=== PATIENT | female | born 1965 | race Caucasian/White ===

== ENCOUNTER → 2018-03-29 | Outpatient (CLI) | payer MEDICAID ==
--- NOTE | 2018-03-31 13:16 | MM ---
Reason for exam: screening (asymptomatic). Last mammogram was performed 5 years and 3 months ago. Physical Findings: A clinical breast exam by your physician is recommended on an annual basis and results should be correlated with mammographic findings. MG Screening Mammo w CAD Bilateral CC and MLO view(s) were taken. Prior study comparison: December 25, 2012, bilateral digital screening mammo w/CAD. The breast tissue is heterogeneously dense. This may lower the sensitivity of mammography. No suspicious abnormality. Left focal asymmetry upper outer quadrant is similar to the exam of 2013. No significant changes when compared with prior studies. ASSESSMENT: Benign, BI-RAD 2 RECOMMENDATION: Routine screening mammogram of both breasts in 1 year.
== END | disposition home or self-care (01) ==
LOC: RADMAMWWP 11:22
PROVIDERS: ATTEND Family Medicine
DX: Z12.31 Encounter for screening mammogram for malignant neoplasm of breast (principal)
CPT/HCPCS: 77067

== ENCOUNTER → 2019-03-06 | Outpatient (CLI) | payer MEDICAID ==
[2019-03-06 08:54] LABS: HCT 43.7 % (34.0-46.0); HGB 14.4 gm/dL (11.4-16.0); MCH 31.2 pg (25.0-35.0); MCHC 32.9 g/dL (31.0-37.0); MCV 94.9 fL (80.0-100.0); Mean Platelet Volume 7.2; Platelet Count 250 k/uL (150-450); RDW 13.8 % (11.5-15.5); WBC 8.6 k/uL (3.8-10.6)
[2019-03-06 09:10] LABS: Appearance,Urine Cloudy (Clear); Bacteria,Urine Rare /hpf; Bilirubin,Urine Negative (Negative); Blood,Urine Negative (Negative); Color,Urine Yellow; Glucose,Urine (UA) Negative (Negative); Ketones,Urine Negative (Negative); Leukocyte Esterase,Urine Negative (Negative); Mucus,Urine Occasional /hpf; Nitrite,Urine Negative (Negative); PH, Urine 5.5 (5.0-8.0); Protein,Urine Trace (Negative); RBC,Urine 1 /hpf (0-5); Specific Gravity,Urine 1.024 (1.001-1.035); Squamous Epithelial Cell,Urine 15 /hpf (0-4); Urobilinogen,Urine <2.0 mg/dL (<2.0); WBC,Urine 3 /hpf (0-5)
[2019-03-06 17:22] LABS: Albumin 4.2 g/dL (3.80-4.90); Albumin/Globulin Ratio 1.91 (1.60-3.17); Anion Gap 6.9 mmol/L (4.00-12.00); Calcium 9.2 mg/dL (8.7-10.3); Carbon Dioxide 27.1 mmol/L (21.6-31.8); Globulin 2.2 g/dL (1.6-3.3); LDL Cholesterol,Calculated 124.4 mg/dL (0.0-131.0); Potassium 3.9 mmol/L (3.5-5.5); Total Bilirubin 0.8 mg/dL (0.3-1.2); Total Protein 6.4 g/dL (6.2-8.2); VLDL Calculation 40.6 mg/dL (5.00-40.00)
[2019-03-06 17:28] LABS: T4, Free (Free Thyroxine) 1.3 ng/dL (0.80-1.80)
== END ==
LOC: LABWHC1 08:15
PROVIDERS: ATTEND Family Medicine
DX: Z00.00 Encounter for general adult medical examination without abnormal findings (principal); E03.9 Hypothyroidism, unspecified
CPT/HCPCS: 36415; 80053; 80061; 81001; 84439; 84443; 84481; 85027

== ENCOUNTER → 2020-06-02 | Outpatient (CLI) | payer MEDICAID ==
[2020-06-02 09:46] LABS: HCT 48.8 % (34.0-46.0); HGB 16.2 gm/dL (11.4-16.0); MCH 32.9 pg (25.0-35.0); MCHC 33.3 g/dL (31.0-37.0); MCV 98.8 fL (80.0-100.0); Mean Platelet Volume 7.4; Platelet Count 267 k/uL (150-450); RBC 4.94 m/uL (3.80-5.40); RDW 12.4 % (11.5-15.5); WBC 9.2 k/uL (3.8-10.6)
[2020-06-02 17:19] LABS: African American GFR (CKD) 113.8 (60.0-200.0); Albumin 4.4 g/dL (3.80-4.90); Albumin/Globulin Ratio 1.91 (1.60-3.17); Anion Gap 12.3 mmol/L (4.00-12.00); BUN/Creat Ratio 22.86 Ratio (12.00-20.00); Calcium 9.7 mg/dL (8.7-10.3); Carbon Dioxide 27.7 mmol/L (21.6-31.8); Chol/HDL Ratio 4.67; Globulin 2.3 g/dL (1.6-3.3); LDL Cholesterol,Calculated 122.8 mg/dL (0.0-131.0); Non-African American GFR(CKD) 98.2 (60.0-200.0); Potassium 3.8 mmol/L (3.5-5.5); Total Bilirubin 0.8 mg/dL (0.3-1.2); Total Protein 6.7 g/dL (6.2-8.2); VLDL Calculation 31.2 mg/dL (5.00-40.00)
== END | disposition home or self-care (01) ==
LOC: LABWHC1 08:05
PROVIDERS: ATTEND Family Medicine
DX: Z00.01 Encounter for general adult medical examination with abnormal findings (principal)
CPT/HCPCS: 36415; 80053; 80061; 85027

== ENCOUNTER → 2020-06-15 | Outpatient (CLI) | payer MEDICAID ==
[2020-06-15 19:05] LABS: T4, Free (Free Thyroxine) 1.3 ng/dL (0.80-1.80)
== END | disposition home or self-care (01) ==
LOC: LABWHC1 13:51
PROVIDERS: ATTEND Family Medicine
DX: E03.9 Hypothyroidism, unspecified (principal)
CPT/HCPCS: 36415; 84439; 84443; 84481

== ENCOUNTER → 2020-07-20 | Outpatient (CLI) | payer MEDICAID ==
--- NOTE | 2020-07-21 09:11 | MM ---
Reason for exam: screening (asymptomatic). Last mammogram was performed 2 years and 4 months ago. Physical Findings: A clinical breast exam by your physician is recommended on an annual basis and results should be correlated with mammographic findings. MG Screening Mammo w CAD Bilateral CC and MLO view(s) were taken. Prior study comparison: March 29, 2018, bilateral MG screening mammo w CAD. December 25, 2012, bilateral digital screening mammo w/CAD. The breast tissue is heterogeneously dense. This may lower the sensitivity of mammography. There are benign appearing round calcifications bilaterally. There is chronic nodularity bilaterally. There is no discrete abnormality. ASSESSMENT: Benign, BI-RAD 2 RECOMMENDATION: Routine screening mammogram of both breasts in 1 year.
== END | disposition home or self-care (01) ==
LOC: RADMAMWWP 08:04
PROVIDERS: ATTEND Family Medicine
DX: Z12.31 Encounter for screening mammogram for malignant neoplasm of breast (principal)
CPT/HCPCS: 77067

== ENCOUNTER → 2021-06-19 | Outpatient (CLI) | payer MEDICAID ==
[2021-06-19 11:35] LABS: HCT 43.7 % (37.2-46.3); HGB 14.5 g/dL (12.0-15.0); MCH 32.7 pg (27.0-32.0); MCHC 33.2 g/dL (32.0-37.0); MCV 98.4 fL (80.0-97.0); Mean Platelet Volume 10.3 fL (9.5-12.2); Platelet Count 203 X 10*3/uL (140-440); RBC 4.44 X 10*6/uL (4.10-5.20); RDW 11.6 % (11.5-14.5); WBC 6.25 X 10*3/uL (4.50-10.00)
[2021-06-19 11:59] LABS: T4, Free (Free Thyroxine) 1.5 ng/dL (0.80-1.80)
[2021-06-19 12:00] LABS: Albumin 4.1 g/dL (3.80-4.90); Albumin/Globulin Ratio 1.64 (1.60-3.17); Anion Gap 9.4 mmol/L (4.00-12.00); BUN/Creat Ratio 21.43 Ratio (12.00-20.00); Calcium 9.5 mg/dL (8.7-10.3); Carbon Dioxide 28.6 mmol/L (21.6-31.8); Chol/HDL Ratio 3.98; Globulin 2.5 g/dL (1.6-3.3); LDL Cholesterol,Calculated 117.2 mg/dL (0.0-131.0); Non-African American GFR(CKD) 97.5 (60.0-200.0); Potassium 3.8 mmol/L (3.5-5.5); Total Bilirubin 1.2 mg/dL (0.2-1.2); Total Protein 6.6 g/dL (6.2-8.2); VLDL Calculation 28.8 mg/dL (5.00-40.00)
== END | disposition home or self-care (01) ==
LOC: LABWHC1 07:56
PROVIDERS: ATTEND Family Medicine
DX: Z00.01 Encounter for general adult medical examination with abnormal findings (principal); E03.9 Hypothyroidism, unspecified
CPT/HCPCS: 36415; 80053; 80061; 84439; 84443; 84481; 85027

== ENCOUNTER → 2021-08-22 | Outpatient (CLI) | payer MEDICAID ==
--- NOTE | 2021-08-24 11:18 | MM ---
Reason for exam: screening (asymptomatic). Last mammogram was performed 1 year and 1 month ago. Physical Findings: A clinical breast exam by your physician is recommended on an annual basis and results should be correlated with mammographic findings. MG Screening Mammo w CAD Bilateral CC and MLO view(s) were taken. Prior study comparison: July 20, 2020, bilateral MG screening mammo w CAD. March 29, 2018, bilateral MG screening mammo w CAD. The breast tissue is heterogeneously dense. This may lower the sensitivity of mammography. Asymmetries greater in the left breast. No significant changes when compared with prior studies. ASSESSMENT: Benign, BI-RAD 2 RECOMMENDATION: Routine screening mammogram of both breasts in 1 year.
== END | disposition home or self-care (01) ==
LOC: RADMAMWWP 13:54
PROVIDERS: ATTEND Family Medicine
DX: Z12.31 Encounter for screening mammogram for malignant neoplasm of breast (principal)
CPT/HCPCS: 77067

== ENCOUNTER → 2022-07-06 | Outpatient (CLI) | payer MEDICAID ==
[2022-07-06 14:41] LABS: HCT 45.4 % (37.2-46.3); HGB 14.9 g/dL (12.0-15.0); MCH 32.2 pg (27.0-32.0); MCHC 32.8 g/dL (32.0-37.0); MCV 98.1 fL (80.0-97.0); Mean Platelet Volume 11.2 fL (9.5-12.2); NRBC Per 100 WBC 0 /100 WBCS (0.0-0.0); Platelet Count 177 X 10*3/uL (140-440); RBC 4.63 X 10*6/uL (4.10-5.20); RDW 11.9 % (11.5-14.5); WBC 7.16 X 10*3/uL (4.50-10.00)
[2022-07-06 15:01] LABS: Chol/HDL Ratio 4.77 Ratio; LDL Cholesterol,Calculated 165.4 mg/dL (0.0-131.0)
[2022-07-06 15:02] LABS: ALT 22 U/L (8-44); AST 25 U/L (13-35); African American GFR (CKD) 115.4 (60.0-200.0); Albumin 4.2 g/dL (3.8-4.9); Albumin/Globulin Ratio 1.54 (1.60-3.17); Alkaline Phosphatase 38 U/L (41-126); BUN/Creat Ratio 22.08 Ratio (12.00-20.00); Blood Urea Nitrogen 14.2 mg/dL (9.0-27.0); Calcium 9.9 mg/dL (8.7-10.3); Carbon Dioxide 28.9 mmol/L (20.0-27.5); Chloride 99 mmol/L (96-109); Globulin 2.7 g/dL (1.6-3.3); Glucose 114 mg/dL (70-110); Non-African American GFR(CKD) 99.6 (60.0-200.0); Potassium 3.9 mmol/L (3.5-5.5); Sodium 139 mmol/L (135-145)
== END | disposition home or self-care (01) ==
LOC: LABWHC1 09:10
PROVIDERS: ATTEND Family Medicine
DX: Z00.01 Encounter for general adult medical examination with abnormal findings (principal); E03.9 Hypothyroidism, unspecified
CPT/HCPCS: 36415; 80053; 80061; 84443; 84481; 85027

== ENCOUNTER → 2022-09-04 | Outpatient (CLI) | payer MEDICAID ==
--- NOTE | 2022-09-05 09:26 | MM ---
Reason for Exam: Screening (asymptomatic). Last mammogram was performed 1 year(s) and 1 month(s) ago. Patient History: Menarche at age 13. First Full-Term at age 26. Postmenopausal. Risk Values: Yasmin 5 year model risk: 1.4%. NCI Lifetime model risk: 8.9%. Prior Study Comparison: 03/29/2018 Bilateral Screening Mammogram, [facility]. 07/20/2020 Bilateral Screening Mammogram, [facility]. 08/22/2021 Bilateral Screening Mammogram, [facility]. Tissue Density: The breast tissue is heterogeneously dense. This may lower the sensitivity of mammography. Findings: Analyzed By CAD. There is no suspicious group of microcalcifications or new suspicious mass in either breast. Areas of chronic nodularity suggestive of benign lymph node. Stable. Benign calcifications. Overall Assessment: Benign, BI-RAD 2 Management: Screening Mammogram of both breasts in 1 year. A clinical breast exam by your physician is recommended on an annual basis and results should be correlated with mammographic findings. Electronically signed and approved by: Valentín Martinez M.D. Radiologis
== END | disposition home or self-care (01) ==
LOC: RADMAMWWP 09:13
PROVIDERS: ATTEND Family Medicine
DX: Z12.31 Encounter for screening mammogram for malignant neoplasm of breast (principal)
CPT/HCPCS: 77067

== ENCOUNTER → 2023-07-22 | Outpatient (CLI) | payer MEDICAID ==
[2023-07-22 15:43] LABS: HCT 46.2 % (37.2-46.3); HGB 14.7 d/dL (12.0-15.0); MCH 31.7 pg (27.0-32.0); MCHC 31.8 d/dL (32.0-37.0); MCV 99.8 FL (80.0-97.0); Mean Platelet Volume 9.9 FL (9.5-12.2); NRBC Per 100 WBC 0 X 10*3/uL (0.00-0.01); Platelet Count 196 X 10*3/uL (140-440); RBC 4.63 X 10*6/uL (4.10-5.20); WBC 6.79 X 10*3/uL (4.50-10.00)
[2023-07-22 15:58] LABS: Chol/HDL Ratio 4.68 Ratio; LDL Cholesterol,Calculated 158.1 mg/dL (0.0-131.0); T4, Free (Free Thyroxine) 1.48 ng/dL (0.80-1.80)
== END | disposition home or self-care (01) ==
LOC: LABWHC1 09:48
PROVIDERS: ATTEND Family Medicine
DX: Z00.01 Encounter for general adult medical examination with abnormal findings (principal); E03.9 Hypothyroidism, unspecified
CPT/HCPCS: 36415; 80061; 84439; 84443; 84481; 85027

== ENCOUNTER → 2024-03-18 | Outpatient (CLI) | payer MEDICAID ==
--- NOTE | 2024-03-20 11:28 | MM ---
Reason for Exam: Screening (asymptomatic). Last mammogram was performed 1 year(s) and 6 month(s) ago. Patient History: Menarche at age 13. First Full-Term at age 26. Postmenopausal. Risk Values: Yasmin 5 year model risk: 1.5%. NCI Lifetime model risk: 8.5%. Prior Study Comparison: 07/20/2020 Bilateral Screening Mammogram, [facility]. 08/22/2021 Bilateral Screening Mammogram, [facility]. 09/04/2022 Bilateral MG screening mammo w CAD, [facility]. Tissue Density: The breasts are heterogeneously dense, which may obscure small masses. Findings: Analyzed By CAD. There is no suspicious group of microcalcifications or new suspicious mass in either breast. Overall Assessment: Benign, BI-RAD 2 Management: Screening Mammogram of both breasts in 1 year. . Patient should continue monthly self-breast exams. A clinical breast exam by your physician is recommended on an annual basis. This exam should not preclude additional follow-up of suspicious palpable abnormalities. Note on Yasmin scores and lifetime risk: 1. A Yasmin score greater than 3% is considered moderate risk. If this is the case, consider specialist referral to assess eligibility for a risk reducing agent. 2. If overall lifetime risk for the development of breast cancer is 20% or higher, the patient may qualify for future screening with alternating mammogram and breast MRI. Electronically signed and approved by: Clint Cabrales M.D. Radiologis
== END | disposition home or self-care (01) ==
LOC: RADMAMWWP 10:45
PROVIDERS: ATTEND Family Medicine
DX: Z12.31 Encounter for screening mammogram for malignant neoplasm of breast (principal); Z78.0 Asymptomatic menopausal state
CPT/HCPCS: 77067

== ENCOUNTER → 2024-08-20 | Outpatient (CLI) | payer MEDICAID ==
[2024-08-20 15:50] LABS: Blood Urea Nitrogen 11.4 mg/dL (9.0-27.0); Chloride 99 mmol/L (96-109); Chol/HDL Ratio 4.64 Ratio; Glucose 136 mg/dL (70-110); LDL Cholesterol,Calculated 136.7 mg/dL (0.0-131.0); Potassium 4.1 mmol/L (3.5-5.5); Sodium 141 mmol/L (135-145)
[2024-08-20 15:51] LABS: ALT 29 U/L (8-44); AST 22 U/L (13-35); Albumin/Globulin Ratio 1.82 Ratio (1.60-3.17); Alkaline Phosphatase 45 U/L (41-126); Calcium 9.6 mg/dL (8.7-10.3); Carbon Dioxide 30.2 mmol/L (21.6-31.8); Globulin 2.2 g/dL (1.6-3.3); T4, Free (Free Thyroxine) 1.16 ng/dL (0.80-1.80); Total Bilirubin 0.7 mg/dL (0.3-1.2); Total Protein 6.2 g/dL (6.2-8.2)
[2024-08-20 16:39] LABS: HCT 46.7 % (37.2-46.3); HGB 15.4 g/dL (12.0-15.0); MCH 33.2 pg (27.0-32.0); MCV 100.6 FL (80.0-97.0); Mean Platelet Volume 10.5 FL (9.5-12.2); NRBC Per 100 WBC 0 X 10*3/uL (0.00-0.01); Platelet Count 202 X 10*3/uL (140-440); RBC 4.64 X 10*6/uL (4.10-5.20); RDW 12.2 % (11.5-14.5); WBC 7.06 X 10*3/uL (4.50-10.00)
== END | disposition home or self-care (01) ==
LOC: LABWHC1 10:08
PROVIDERS: ATTEND Family Medicine
DX: Z00.01 Encounter for general adult medical examination with abnormal findings (principal); E03.9 Hypothyroidism, unspecified; R73.03 Prediabetes
CPT/HCPCS: 36415; 80053; 80061; 83036; 84439; 84443; 84481; 85027

== ENCOUNTER 2024-11-12 10:55 | Inpatient (IN) | payer MEDICAID ==
--- NOTE | 2024-11-12 11:16 | ED ---
SOB HPI - General Chief Complaint: Shortness of Breath Stated Complaint: SOB Time Seen by Provider: 11/12/24 11:13 Source: patient, family (), RN notes reviewed Mode of arrival: ambulatory Limitations: no limitations - History of Present Illness Initial Comments: 59-year-old female with a past medical history significant of thyroid disorder and hypertension presenting to the ER for evaluation of shortness of breath. Patient was sent by PCP, Dr. Snowden, for evaluation of hypoxia. Patient states over the weekend she started to feel ill with a cough that is worse at night. She was seen by PCP today for evaluation of this. Patient was found to have oxygen saturations in the 80s. Patient was given breathing treatment in office without improvement. They also ambulated patient with no improvement of oxygen saturations. , at bedside, states she has been having progressive shortness of breath over the past 6 weeks. Patient states she has exertional dyspnea going up stairs, carrying her purse or doing anything extra besides wa lking. She denies home oxygen use, CPAP use, peripheral edema. Patient does states she sleeps on her back but last night slept in a recliner as she "did not want to bother her with coughing". She denies recent or current chest pain, fevers, chills, nausea, vomiting, abdominal pain, constipation/diarrhea or urinary complaints. Patient does report she takes hydrochlorothiazide for hypertension. She does report a distant history of smoking. No history of blood clots and no anticoagulation use. - Related Data Home Medications Medication Instructions Recorded Confirmed Levothyroxine Sodium [Synthroid] 100 mcg PO DAILY 11/12/24 11/12/24 Sertraline [Zoloft] 50 mg PO DAILY 11/12/24 11/12/24 hydroCHLOROthiazide [Hydrodiuril] 25 mg PO DAILY 11/12/24 11/12/24 hydroCHLOROthiazide [Hydrodiuril] 25 mg PO DAILY PRN 11/12/24 11/12/24 lisinopriL [Zestril] 20 mg PO DAILY 11/12/24 11/12/24 Allergies Allergy/AdvReac Type Severity Reaction Status Date / Time No Known Allergies Allergy Verified 11/12/24 13:09 Review of Systems ROS Statement: Those systems with pertinent positive or pertinent negative responses have been documented in the HPI. ROS Other: All systems not noted in ROS Statement are negative. Past Medical History Past Medical History: Hypertension, Thyroid Disorder Past Surgical History: Cholecystectomy Smoking Status: Never smoker General Exam Limitations: no limitations General appearance: alert, in no apparent distress ENT exam: Present: normal exam, mucous membranes moist Respiratory exam: Present: decreased breath sounds (Right), other (Conversational dyspnea oxygen saturation is dropping to 84% on room air) Cardiovascular Exam: Present: regular rate, normal rhythm, normal heart sounds. Absent: systolic murmur, diastolic murmur, rubs, gallop, clicks GI/Abdominal exam: Present: soft, normal bowel sounds. Absent: distended, tenderness, guarding, rebound, rigid Extremities exam: Present: normal inspection, full ROM, normal capillary refill, other (No pitting edema). Absent: tenderness, pedal edema, joint swelling, calf tenderness Neurological exam: Present: alert, oriented X3, CN II-XII intact Skin exam: Present: warm, dry, intact, normal color. Absent: rash Course Vital Signs 11/12/24 11/12/24 11/12/24 10:57 12:14 12:17 Temperature 97.6 F Pulse Rate 92 77 Respiratory 20 22 Rate Blood Pressure 179/79 172/81 O2 Sat by Pulse 94 L 86 L 95 Oximetry - Reevaluation(s) Reevaluation #1: 11/12/24 13:34 Case discussed with Sound physician, Dr. Modi, for admission. Medical Decision Making - Medical Decision Making Was pt. sent in by a medical professional or institution (, PA, RIG OPERATOR, urgent care, hospital, or half-way...) When possible be specific @ -Patient sent by PCP for evaluation of hypoxia Did you speak to anyone other than the patient for history (EMS, parent, family, police, friend...)? What history was obtained from this source @ -, at bedside, aiding in HPI and past medical history. Did you review nursing and triage notes (agree or disagree)? Why? @ -I reviewed and agree with nursing and triage notes Were old charts reviewed (outside hosp., previous admission, EMS record, old EKG, old radiological studies, urgent care reports/EKG's, half-way records)? Report findings @ -No old charts were reviewed Differential Diagnosis (chest pain, altered mental status, abdominal pain women, abdominal pain men, vaginal bleeding, weakness, fever, dyspnea, syncope, head ache, dizziness, GI bleed, back pain, seizure, CVA, palpatations, mental health, musculoskeletal)? @ -Differential Dyspnea:Coronary syndrome, arrhythmia, tamponade, asthma, COPD, pulmonary embolism, pneumonia, pneumothorax, pulmonary effusion, anaphylaxis, diabetic ketoacidosis, flailed chest, pulmonary contusion, diaphragmatic rupture, anemia, neuromuscular, this is not meant to be an all-inclusive list. EKG interpreted by me (3pts min.). @ -As above X-rays interpreted by me (1pt min.). @ -CXR interpreted me showing prominent pulmonary vasculature. No focal consolidations. CT interpreted by me (1pt min.). @ -CTA chest showing no acute evidence of pulmonary embolism. There is patchy pulmonary opacities suggestive of atypical pneumonia. U/S interpreted by me (1pt. min.). @ -None done What testing was considered but not performed or refused? (CT, X-rays, U/S, labs)? Why? @ -None What meds were considered but not given or refused? Why? @ -None Did you discuss the management of the patient with other professionals (professionals i.e. , PA, RIG OPERATOR, lab, RT, psych nurse, group social worker, sand tester, teacher, commissary officer, correctional case records supervisor)? Give summary @ -Case discussed with sound physician, Dr. Alves for admission. Was smoking cessation discussed for >3mins.? @ -No Was critical care preformed (if so, how long)? @ -No Were there social determinants of health that impacted care today? How? (Homelessness, low income, unemployed, alcoholism, drug addiction, transportation, low edu. Level, literacy, decrease access to med. care, fpc, rehab)? @ -No Was there de-escalation of care discussed even if they declined (Discuss DNR or withdrawal of care, Hospice)? DNR status @ -No What co-morbidities impacted this encounter? (DM, HTN, Smoking, COPD, CAD, Cancer, CVA, ARF, Chemo, Hep., AIDS, mental health diagnosis, sleep apnea, morbid obesity)? @ -Hypertension, thyroid disorder, obese Was patient admitted / discharged? Hospital course, mention meds given and route, prescriptions, significant lab abnormalities, going to OR and other pertinent info. @ -Admitted. 59-year-old female sent in by PCP for evaluation of dyspnea.Upon examination, patient resting in exam room with mild signs of acute respiratory distress. Patient having conversational dyspnea and having oxygen saturations between 84 and 86% on room air. Patient does not typically wear oxygen at home. Patient was started on 4 L nasal cannula oxygen at that time with improvement of oxygen saturation to 95%. Laboratory studies obtained along with chest x- ray. WBC 8.8. Lactic 1.1. Troponin undetectable. BNP 102. D-dimer elevated at 0.65 for which CTA chest was obtained and showing no evidence of acute pulmonary embolism. There is patchy pulmonary opacities suggestive of an atypical pneumonia. Patient remained stable in the ER on 3L NC oxygen. Given pneumonia and hypoxia admission was considered and discussed with Sound physician, Dr. Modi. Blood cultures obtained. Patient started on 2 g IV push Rocephin along with 500mg azithromycin. Patient also given 125 mg Solu-Medrol and maintenance fluid at 100 cc/h. ID on consult. Patient is agreeable for admission. Case discussed with the attending, Dr. Yu. Undiagnosed new problem with uncertain prognosis? @ -No Drug Therapy requiring intensive monitoring for toxicity (Heparin, Nitro, Insulin, Cardizem)? @ -No Were any procedures done? @ -No Diagnosis/symptom? @ -Pneumonia/hypoxia Acute, or Chronic, or Acute on Chronic? @ -Acute Uncomplicated (without systemic symptoms) or Complicated (systemic symptoms)? @ -Complicated Side effects of treatment? @ -No Exacerbation, Progression, or Severe Exacerbation? @ -No Poses a threat to life or bodily function? How? (Chest pain, USA, NV, pneumonia, PE, COPD, DKA, ARF, appy, cholecystitis, CVA, Diverticulitis, Homicidal, Suicidal, threat to staff... and all critical care pts) @ -Yes, pneumonia can lead to hypoxia and/or sepsis. - Lab Data Result diagrams: 11/12/24 11:28 11/12/24 11:28 Lab Results 11/12/24 11/12/24 11/12/24 Range/Units 11:28 11:28 11:28 WBC 8.8 (3.8-10.6) k/uL RBC 4.68 (3.80-5.40) m/uL Hgb 14.5 (11.4-16.0) gm/dL Hct 47.1 H (34.0-46.0) % MCV 100.4 H (80.0-100.0) fL MCH 30.8 (25.0-35.0) pg MCHC 30.7 L (31.0-37.0) g/dL RDW 13.4 (11.5-15.5) % Plt Count 263 (150-450) k/uL MPV 7.0 Neutrophils % 79 % Lymphocytes % 13 % Monocytes % 5 % Eosinophils % 2 % Basophils % 0 % Neutrophils # 7.0 (1.3-7.7) k/uL Lymphocytes # 1.1 (1.0-4.8) k/uL Monocytes # 0.4 (0-1.0) k/uL Eosinophils # 0.2 (0-0.7) k/uL Basophils # 0.0 (0-0.2) k/uL Hypochromasia Slight PT 11.5 (10.0-12.5) sec INR 1.0 (<1.2) APTT 23.3 (22.0-30.0) sec D-Dimer 0.65 H (<0.60) mg/L FEU Sodium 133 L (137-145) mmol/L Potassium 4.4 (3.5-5.1) mmol/L Chloride 100 (98-107) mmol/L Carbon Dioxide 31 H (22-30) mmol/L Anion Gap 2 mmol/L BUN 12 (7-17) mg/dL Creatinine 0.52 (0.52-1.04) mg/dL Est GFR (CKD-EPI)AfAm >90 (>60 ml/min/1.73 sqM) Est GFR (CKD-EPI)NonAf >90 (>60 ml/min/1.73 sqM) Glucose 137 H (74-99) mg/dL Plasma Lactic Acid Maverick (0.7-2.0) mmol/L Calcium 9.3 (8.4-10.2) mg/dL Total Bilirubin 1.1 (0.2-1.3) mg/dL AST 31 (14-36) U/L ALT 31 (4-34) U/L Alkaline Phosphatase 26 L (38-126) U/L Troponin I (0.000-0.034) ng/mL NT-Pro-B Natriuret Pep 102 pg/mL Total Protein 6.7 (6.3-8.2) g/dL Albumin 4.0 (3.5-5.0) g/dL Influenza Type A (PCR) (Not Detectd) Influenza Type B (PCR) (Not Detectd) RSV (PCR) (Not Detectd) SARS-CoV-2 (PCR) (Not Detectd) 11/12/24 11/12/24 11/12/24 Range/Units 11:28 11:28 11:28 WBC (3.8-10.6) k/uL RBC (3.80-5.40) m/uL Hgb (11.4-16.0) gm/dL Hct (34.0-46.0) % MCV (80.0-100.0) fL MCH (25.0-35.0) pg MCHC (31.0-37.0) g/dL RDW (11.5-15.5) % Plt Count (150-450) k/uL MPV Neutrophils % % Lymphocytes % % Monocytes % % Eosinophils % % Basophils % % Neutrophils # (1.3-7.7) k/uL Lymphocytes # (1.0-4.8) k/uL Monocytes # (0-1.0) k/uL Eosinophils # (0-0.7) k/uL Basophils # (0-0.2) k/uL Hypochromasia PT (10.0-12.5) sec INR (<1.2) APTT (22.0-30.0) sec D-Dimer (<0.60) mg/L FEU Sodium (137-145) mmol/L Potassium (3.5-5.1) mmol/L Chloride (98-107) mmol/L Carbon Dioxide (22-30) mmol/L Anion Gap mmol/L BUN (7-17) mg/dL Creatinine (0.52-1.04) mg/dL Est GFR (CKD-EPI)AfAm (>60 ml/min/1.73 sqM) Est GFR (CKD-EPI)NonAf (>60 ml/min/1.73 sqM) Glucose (74-99) mg/dL Plasma Lactic Acid Maverick 1.1 (0.7-2.0) mmol/L Calcium (8.4-10.2) mg/dL Total Bilirubin (0.2-1.3) mg/dL AST (14-36) U/L ALT (4-34) U/L Alkaline Phosphatase (38-126) U/L Troponin I <0.012 (0.000-0.034) ng/mL NT-Pro-B Natriuret Pep pg/mL Total Protein (6.3-8.2) g/dL Albumin (3.5-5.0) g/dL Influenza Type A (PCR) Not Detected (Not Detectd) Influenza Type B (PCR) Not Detected (Not Detectd) RSV (PCR) Not Detected (Not Detectd) SARS-CoV-2 (PCR) Not Detected (Not Detectd) - EKG Data -: EKG Interpreted by Me EKG Comments: EKG taken 11: 08 showing a sinus rhythm. No acute ST segment or T wave abnormalities. Ventricular rate 88, AL interval 163, QRS duration 80, QT/QTc 375/402. - Radiology Data Radiology results: report reviewed, image reviewed Disposition Clinical Impression: Pneumonia, Hypoxia Disposition: ADMITTED IP TO THIS HOSP Condition: Stable Time of Disposition: 13:36
[2024-11-12 11:41] LABS: Basophils % (A) 0 %; Eosinophils # (A) 0.2 k/uL (0-0.7); Eosinophils % (A) 2 %; HCT 47.1 % (34.0-46.0); HGB 14.5 gm/dL (11.4-16.0); Hypochromasia Slight; Lymphocytes # (A) 1.1 k/uL (1.0-4.8); Lymphocytes % (A) 13 %; MCH 30.8 pg (25.0-35.0); MCHC 30.7 g/dL (31.0-37.0); MCV 100.4 fL (80.0-100.0); Monocytes # (A) 0.4 k/uL (0-1.0); Monocytes % (A) 5 %; Neutrophils % (A) 79 %; Platelet Count 263 k/uL (150-450); RBC 4.68 m/uL (3.80-5.40); RDW 13.4 % (11.5-15.5); WBC 8.8 k/uL (3.8-10.6)
[2024-11-12 11:54] LABS: Partial Thromboplastin Time 23.3 sec (22.0-30.0); Prothrombin Time 11.5 sec (10.0-12.5)
--- NOTE | 2024-11-12 12:21 | XR ---
EXAMINATION TYPE: XR chest 2V DATE OF EXAM: 11/12/2024 11:49 AM COMPARISON: Chest radiographs from 11/12/2024 CLINICAL INDICATION: Female, 59 years old with history of difficulty breathing; [facility] TECHNIQUE: XR chest 2V Frontal and lateral views of the chest. FINDINGS: Lungs/Pleura: There is no evidence of pleural effusion, focal consolidation, or pneumothorax. Pulmonary vascularity: Pulmonary vascular congestion. Heart/mediastinum: Cardiomediastinal silhouette is enlarged and stable. Musculoskeletal: No acute osseous pathology. IMPRESSION: Cardiomegaly and mild pulmonary vascular congestion. Correlate with BNP for congestive heart failure. [facility], , 11/12/2024 12:19 PM
[2024-11-12 12:22] LABS: ALT 31 U/L (4-34); African American GFR (CKD) >90 (>60 ml/min/1.73 sqM); Anion Gap 2 mmol/L; Blood Urea Nitrogen 12 mg/dL (7-17); Calcium 9.3 mg/dL (8.4-10.2); Carbon Dioxide 31 mmol/L (22-30); Chloride 100 mmol/L (98-107); Glucose 137 mg/dL (74-99); Non-African American GFR(CKD) >90 (>60 ml/min/1.73 sqM); Sodium 133 mmol/L (137-145); Total Bilirubin 1.1 mg/dL (0.2-1.3); Total Protein 6.7 g/dL (6.3-8.2)
[2024-11-12 12:29] LABS: NT-Pro-B-Type Natriuretic Pept 102 pg/mL
[2024-11-12 12:32] LABS: AST 31 U/L (14-36); Alkaline Phosphatase 26 U/L (38-126); Potassium 4.4 mmol/L (3.5-5.1)
--- NOTE | 2024-11-12 13:13 | CT ---
EXAMINATION TYPE: CT chest angio for PE CT DLP: 1133.6 mGycm, Automated exposure control for dose reduction was used. DATE OF EXAM: 11/12/2024 1:02 PM COMPARISON: Chest radiograph from same day. CLINICAL INDICATION:Female, 59 years old with history of hypoxia elevated dimer; hypoxia elevated dim er TECHNIQUE/CONTRAST: CTA scan of the thorax is performed with IV Contrast, patient injected with 100ml mL of Isovue 370, p ulmonary embolism protocol. MIP images are created and reviewed. FINDINGS: Pulmonary Artery: There is no evidence for a filling defect within the pulmonary vasculature to sugge st acute pulmonary embolism. The pulmonary artery is of normal size. Lungs/Pleura: No pleural effusion or pneumothorax. Patchy airspace opacities throughout the lungs mor e subpleural location. Few scattered calcified granulomas. Airway: Large airways are patent. Heart: The heart is mildly enlarged for size.. No pericardial effusion Vasculature: Bovine aortic arch configuration. No evidence of aortic aneurysm. Mediastinum: Multiple prominent mediastinal and bilateral hilar lymph nodes with enlarged left hilar lymph node measuring up to 1.3 cm short axis. Few punctate calcified right hilar lymph nodes. Musculoskeletal: No acute osseous abnormalities Soft Tissues: Unremarkable. Lower neck: No significant findings. Upper Abdomen: Multiple calcified granulomas within the spleen. Gallbladder is surgically absent. Hyp oattenuating appearance of the liver. IMPRESSION: 1. No evidence of pulmonary embolism. 2. Patchy pulmonary opacities suggestive of an atypical pulmonary infection. 3. Reactive mediastinal/hilar lymphadenopathy likely secondary to #2. 4. Sequelae of prior granulomatous disease. 5. Cardiomegaly. 6. Hepatic steatosis. [facility], , 11/12/2024 1:10 PM
[2024-11-12] MEDS ORDERED: ONDANSETRON 4 MG/2 ML VIAL IVP PRN (13:35)
[2024-11-12] MEDS ORDERED: IBUPROFEN 400 MG TAB PO PRN (13:35)
[2024-11-12] MEDS ORDERED: ACETAMINOPHEN TAB 325 MG TAB PO PRN (13:35)
[2024-11-12] MEDS ORDERED: NALOXONE 0.4 MG/ML 1 ML VIAL IV PRN (13:35)
[2024-11-12] MEDS: methylPREDNISolone SOD SUCCI 125 MG/2 ML VIAL IV STA ×2 (14:16→14:56)
[2024-11-12] MEDS: AZITHROMYCIN 500 MG TAB PO STA (14:46)
[2024-11-12] MEDS: cefTRIAXone IN SWFI 1,000 MG/10 ML SYRINGE IVP STA (14:49)
[2024-11-12] MEDS: SODIUM CHLORIDE 0.9% 1,000 ML IV SCH (14:57)
[2024-11-12] MEDS ORDERED: IPRATROPIUM-ALBUTEROL 3 ML NEB INHALATION PRN (14:59)
[2024-11-12] MEDS: IPRATROPIUM-ALBUTEROL 3 ML NEB INHALATION SCH (16:36)
--- NOTE | 2024-11-12 17:16 | P.HPIM ---
History of Present Illness H&P Date: 11/12/24 History of Presenting Illness: Patient is a very pleasant 59-year-old female with a past medical history of hypertension, hypothyroidism, and depression with anxiety. She presented to the emergency department secondary to a chief complaint of shortness of breath. Patient reports that she has been experiencing increasing shortness of breath over the last week along with productive cough with green sputum production. at bedside reports this has been increasing over the last 6 weeks. Patient reports her cough is worse at night and in the mornings and her cough and shortness of breath is worse with exertion. She denies history of nicotine use, previous diagnosis of COPD, sarcoidosis or any other respiratory complaints . She reports she does get bronchitis frequently. She reports she held off on seeking treatment because she had an appointment with her PCP this morning. She reports at her PCPs appointment she was found to have low oxygen saturations down into the 80s and was given a breathing treatment which resulted in no improvement so they sent her to the emergency department for evaluation. Patient denies fevers, chills, diaphoresis or night sweats, unintentional weight loss, dizziness, lightheadedness, headache, chest pain or palpitations, nausea, vomiting, abdominal pain, or experiencing any numbne ss/tingling/weakness/swelling in her extremities. Upon arrival to our facility, patient underwent evaluation in the emergency department. Vital signs upon arrival show blood pressure 179/79, heart rate 92, respiratory rate 20, temp 97.6 F, and SpO2 of 94% on room air. Shortly after arrival patient was noted to become hypoxic with SpO2 decreasing to 86% at rest on room air. Patient was placed on supplemental oxygen with 3 L O2 via nasal cannula with current SpO2 of 93%. EKG was completed showing normal sinus rhythm and 88 bpm with no significant T wave or ST abnormalities upon personal review and interpretation. Chest x-ray completed showing cardiomegaly and mild pulmonary vascular con gestion recommending correlation with BMP to rule out congestive heart failure. Labs were completed and reviewed. CBC showing elevated hematocrit of 47.1 and MCV of 100.4. Coagulation profile showing elevated D-dimer of 0.65. BMP showing sodium 133, bicarb of 31, and glucose of 137. Lactic acid was normal at 1.1. Liver profile unremarkable with exception of low alkaline phosphatase of 26. Troponin was negative at less than 0.012 and proBNP was only 102. Influenza A, influenza B, RSV, and COVID PCR were negative. CT chest completed and was negative for pulmonary emboli showing patchy pulmonary opacities suggestive of atypical pulmonary infection with multiple prominent mediastinal and bilateral hilar lymph nodes with enlarged hilar lymph node measuring up to 1.3 cm and a few punctate calcified right hilar lymph nodes reported along with multiple calcified granulomas within the spleen, cardiomegaly, and hepatic steatosis. Patient started on antibiotics with azithromycin and Rocephin and given single dose of IV steroids. She was admitted under services with consultation to pulmonology. Review of systems: Pertinent positives and negatives as discussed in HPI, a complete review of systems was performed and all other systems are negative. Physical exam: Vital signs reviewed and stable. General: Nontoxic, no distress and appears stated age. Obese. Derm: Skin warm and dry, normal coloration for ethnicity. Head: Atraumatic, normocephalic and symmetric. Eyes: EOM's intact, no lid lag, and anicteric sclera Mouth: no lip lesions, mucus membranes moist Cardiovascular: regular rate and rhythm with normal S1S2, no murmur, positive posterior tibial pulses bilaterally, and cap refill < 2 seconds. Lungs: Respirations even, regular, and unlabored on 3 L O2. Lungs diminished. No wheezes, rhonchi, rales, or crackles noted. Abdominal: soft, nontender to palpation, no guarding, no appreciable organomeg [place] Ext: ROM intact. No gross muscle atrophy, no edema, no contractures Neuro: Speech clear, face symmetrical and CN II-XII grossly intact with no noted focal neuro deficits Psych: Alert and oriented to person, place, time, and situation. Appropriate and pleasant affect. Assessment and Plan of Care: Acute respiratory failure with hypoxia and hypercapnia Atypical pneumonia Elevated D-dimer, CTA negative for PE -Pulmonology consulted, appreciate recommendations -Oxygenation to be administered and titrated as needed to maintain SPO2 equal to or greater than 92% -Telemetry monitoring. -Monitor pulse-oximetry -Duonebs scheduled 4 times daily and as needed for SOB and/or wheezing -Incentive Spirometry -Steroids: Solu-Medrol 60 mg IV every 8 hours. -Antibiotics: Zithromax 500 mg daily and Rocephin 2 g daily. -Follow-up on sputum culture, Legionella antigen, and mycoplasma results -Follow-up on blood cultures. Multiple prominent mediastinal and bilateral hilar lymph nodes Punctate calcified right hilar lymph nodes Macrocytosis Low alkaline phosphatase -CT revealing multiple prominent mediastinal and bilateral hilar lymph nodes with enlarged hilar lymph node measuring up to 1.3 cm and a few punctate calcified right hilar lymph nodes reported along with multiple calcified granulomas within the spleen. -Patient will need outpatient workup with hematology after discharge. Hypertension Continue lisinopril 20 mg daily and hydrochlorothiazide 25 mg daily. Hypothyroidism Continue levothyroxine 100 mcg daily. Anxiety with depression Continue sertraline 50 mg daily. Data and imaging reviewed: As stated above in HPI CODE STATUS: Full code DVT prophylaxis: Lovenox Anticipated discharge date: Pending clinical course Anticipated discharge place: Home Patient was seen independently by Nurse Practitioner. This document was prepared using [employer] dictation software. Please allow for errors in blocker and polisher while rare they do occur. Benigno Vann NP rendered care for this patient independently, reviewed the findings and plan as documented in the note above and agree with plan. I did not physically speak with or examine the patient on this date. Past Medical History Past Medical History: Hypertension, Thyroid Disorder Past Surgical History: Cholecystectomy Smoking Status: Never smoker Medications and Allergies Home Medications Medication Instructions Recorded Confirmed Type Levothyroxine Sodium [Synthroid] 100 mcg PO DAILY 11/12/24 11/12/24 History Sertraline [Zoloft] 50 mg PO DAILY 11/12/24 11/12/24 History hydroCHLOROthiazide [Hydrodiuril] 25 mg PO DAILY 11/12/24 11/12/24 History hydroCHLOROthiazide [Hydrodiuril] 25 mg PO DAILY PRN 11/12/24 11/12/24 History lisinopriL [Zestril] 20 mg PO DAILY 11/12/24 11/12/24 History Allergies Allergy/AdvReac Type Severity Reaction Status Date / Time No Known Allergies Allergy Verified 11/12/24 13:09 Physical Exam Vitals: Vital Signs Temp Pulse Resp BP Pulse Ox 11/12/24 14:59 80 20 176/77 93 L 11/12/24 12:17 95 11/12/24 12:14 77 22 172/81 86 L 11/12/24 10:57 97.6 F 92 20 179/79 94 L Intake and Output 11/12/24 11/12/24 11/12/24 06:59 14:59 22:59 Other: Weight 136.078 kg Results CBC & Chem 7: 11/12/24 11:28 11/12/24 11:28 Labs: Abnormal Lab Results - Last 24 Hours (Table) 11/12/24 11/12/24 11/12/24 Range/Units 11:28 11:28 11:28 Hct 47.1 H (34.0-46.0) % MCV 100.4 H (80.0-100.0) fL MCHC 30.7 L (31.0-37.0) g/dL D-Dimer 0.65 H (<0.60) mg/L FEU Sodium 133 L (137-145) mmol/L Carbon Dioxide 31 H (22-30) mmol/L Glucose 137 H (74-99) mg/dL Alkaline Phosphatase 26 L (38-126) U/L
[2024-11-12 20:21] LABS: Glucose,Whole Blood 267 mg/dL (70-110)
--- NOTE | 2024-11-12 20:41 | P.CNPUL ---
History of Present Illness Consult date: 11/12/24 Reason for consult: dyspnea History of present illness: this is a 59-year-old female patient was hospitalized for increased shortness of breath and cough and congestion. This has been going on for the past 2 weeks. Both her and her were feeling sick and they were suffering from respiratory illness. No fever. No chills. Minimal sputum production. No hemoptysis or pleurisy. She is morbidly obese. She has a body mass index of 53.1. Nevertheless, she denies having any chronic lung disease or disorder. She is a non-smoker. No history of asthma. No history of emphysema. Viral screen is negative. White cell count is not elevated. Electrolytes are all within normal limits. Procalcitonin level is pending for now. CT of the chest was done in the emergency department and it showed no evidence of any pulmonary embolism. Some limited patchy airspace disease in the lungs bilaterally more so in the subpleural location. Few scattered calcified granulomas. Minimal mediastinal lymphadenopathy involving the right hilum. There is cardiomegaly. There is hepatic steatosis. The patient is currently on 3 L of oxygen by nasal cannula with a pulse ox of 95%. No major edema lower extremities. proBNP level is not elevated. Cardiac enzymes are nonelevated. No recurrent respiratory tract infections or illnesses. Review of Systems Constitutional: Reports as per HPI, Reports weight gain Eyes: denies as per HPI, denies blurred vision, denies bulging eye, denies decreased vision, denies diplopia, denies discharge, denies dry eye, denies irritation, denies itching, denies pain, denies photophobia, denies loss of peripheral vision, denies loss of vision, denies tunnel vision/blind spots Ears: deny: decreased hearing, ear discharge, earache, tinnitus Ears, nose, mouth and throat: Reports as per HPI Breasts: absent: as per HPI, change in shape, gynecomastia, masses, nipple discharge, pain, skin changes, swelling Cardiovascular: Reports as per HPI Respiratory: Reports cough, Reports dyspnea, Reports snoring Gastrointestinal: Reports as per HPI Genitourinary: Reports as per HPI Menstruation: Reports as per HPI Musculoskeletal: Reports as per HPI Musculoskeletal: absent: ankle pain, ankle stiffness, ankle swelling, as per HPI, elbow pain, elbow stiffness, elbow swelling, foot pain, foot stiffness, foot swelling, hand pain, hand stiffness, hand swelling, hip pain, hip stiffness, hip swelling, knee pain, knee stiffness, knee swelling, shoulder pain, shoulder stiffness, shoulder swelling, wrist pain, wrist stiffness, wrist swelling Integumentary: Reports as per HPI Neurological: Reports as per HPI Psychiatric: Reports as per HPI Endocrine: Reports as per HPI Hematologic/Lymphatic: Reports as per HPI Allergic/Immunologic: Reports as per HPI Past Medical History Past Medical History: Hypertension, Thyroid Disorder Past Surgical History: Cholecystectomy Smoking Status: Never smoker Medications and Allergies Home Medications Medication Instructions Recorded Confirmed Type Levothyroxine Sodium [Synthroid] 100 mcg PO DAILY 11/12/24 11/12/24 History Sertraline [Zoloft] 50 mg PO DAILY 11/12/24 11/12/24 History hydroCHLOROthiazide [Hydrodiuril] 25 mg PO DAILY 11/12/24 11/12/24 History hydroCHLOROthiazide [Hydrodiuril] 25 mg PO DAILY PRN 11/12/24 11/12/24 History lisinopriL [Zestril] 20 mg PO DAILY 11/12/24 11/12/24 History Allergies Allergy/AdvReac Type Severity Reaction Status Date / Time No Known Allergies Allergy Verified 11/12/24 13:09 Physical Exam Vitals: Vital Signs Temp Pulse Pulse Resp BP BP Pulse Ox 11/12/24 20:16 99.2 F 94 17 142/63 95 11/12/24 19:45 85 11/12/24 19:33 88 11/12/24 19:32 86 20 180/70 96 11/12/24 16:49 82 11/12/24 16:42 20 177/77 97 11/12/24 16:39 98 11/12/24 16:37 78 11/12/24 14:59 80 20 176/77 93 L 11/12/24 12:17 95 11/12/24 12:14 77 22 172/81 86 L 11/12/24 10:57 97.6 F 92 20 179/79 94 L Intake and Output 11/12/24 11/12/24 11/12/24 06:59 14:59 22:59 Intake Total 222 Balance 222 Intake: Oral 222 Other: Weight 136.078 kg The patient appeared well nourished and normally developed. Vital signs as documented. The patient is currently on 3 days of oxygen by nasal cannula. Mo rbidly obese with a BMI of 53 Head exam is unremarkable. No scleral icterus or corneal arcus noted. Neck is without jugular venous distension, thyromegaly, or carotid bruits. Carotid upstrokes are brisk bilaterally. Mallampati class IV with significant crowding of the posterior pharynx Lungs are clear to auscultation and percussion. Cardiac exam reveals the PMI to be normally sized and situated. Rhythm is regular. First and second heart sounds normal. No murmurs, rubs or gallops. Abdominal exam reveals normal bowel sounds, no masses, no organomegaly and no aortic enlargement. Extremities are nonedematous and both femoral and pedal pulses are normal. Examination of the skin revealed no evidence of significant rashes, suspicious appearing nevi or other concerning lesions. Neurologically, the patient is awake and alert and the patient does not have any focal neurological deficit. Cranial nerves are essentially intact. Results - Laboratory Findings CBC and BMP: 11/12/24 11:28 11/12/24 11:28 PT/INR, D-dimer PT 11.5 sec (10.0-12.5) 11/12/24 11:28 INR 1.0 (<1.2) 11/12/24 11:28 D-Dimer 0.65 mg/L FEU (<0.60) H 11/12/24 11:28 Abnormal lab findings: Abnormal Labs 11/12/24 11/12/24 11/12/24 11:28 11:28 11:28 Hct 47.1 H MCV 100.4 H MCHC 30.7 L D-Dimer 0.65 H Sodium 133 L Carbon Dioxide 31 H Glucose 137 H POC Glucose (mg/dL) Alkaline Phosphatase 26 L 11/12/24 20:18 Hct MCV MCHC D-Dimer Sodium Carbon Dioxide Glucose POC Glucose (mg/dL) 267 H Alkaline Phosphatase - Diagnostic Findings Chest x-ray: image reviewed Assessment and Plan Plan: Subacute shortness of breath with evidence of nonspecific patchy subpleural pulmonary filtrates and limited mediastinal lymphadenopathy. Consider atypical pneumonia or resolving respiratory tract infection/pneumonia. Could be potentially atypical. Acute hypoxic respiratory failure currently on 3 L by nasal cannula. Pulmonary granulomas Obesity with a BMI of 53.1. Hypertension Hyperlipidemia Plan Agree on the current management Check procalcitonin level Continue DuoNeb Continue Rocephin and Zithromax Continue IV Solu-Medrol Sputum culture if possible Blood culture Will follow, recommend follow-up CAT scan in 3 to 6 months post discharge to follow-up on those pulmonary infiltrates and mediastinal lymph nodes.
[2024-11-13] MEDS: methylPREDNISolone SOD SUCCI 125 MG/2 ML VIAL IV SCH (00:23)
[2024-11-13] MEDS: lisinopriL 20 MG TAB PO SCH (06:05)
[2024-11-13] MEDS: LEVOTHYROXINE 100 MCG TAB PO SCH (06:05)
[2024-11-13] MEDS: SERTRALINE 50 MG TAB PO SCH (09:02)
[2024-11-13] MEDS: hydroCHLOROthiazide 25 MG TAB PO SCH (09:02)
[2024-11-13] MEDS: ENOXAPARIN 40 MG/0.4 ML SYRINGE SQ SCH (09:03)
--- NOTE | 2024-11-13 09:15 | P.CONS ---
History of Present Illness - Reason for Consult Consult date: 11/12/24 Atypical pneumonia Requesting physician: Benigno Vann - Chief Complaint Shortness of breath and cough x days - History of Present Illness Patient is a 59-year-old female with a past medical history significant for hypertension hypothyroidism never smoker patient presenting to the hospital for evaluation of increasing shortness of breath apparently patient symptom has been going off and on for the last 6 weeks symptom has been mostly cough which has been dry irritating and recently has been productive of small amount of yellow sputum but no hemoptysis patient complaining of some central chest pain from all the coughing mild to moderate intensity and also complaining of increasing shortness of breath patient was noticed to be hypoxic with O2 sats of 80% in the PCP office for the patient was advised to go to the hospital on arrival to the ER patient did have temperature of 97.6 F patient was nontachycardic or hypotensive she was hypoxic with O2 sats 86% documented in the chart currently on 3 significant oxygen patient did have a white count of 8.8 cr eatinine is 0.52 liver enzymes are normal influenza RSV COVID testing has been negative patient did have a chest x-ray cardiomegaly and mild pulmonary vascular congestion patient also have a CT angiogram of the chest that was negative for PE diffuse patchy pulmonary opacities suggestive of atypical pulmonary infection reactive mediastinal hilar lymphadenopathy patient was started on Rocephin and Z ithromax infectious disease was consulted for further management of antibiotic therapy Review of Systems Positive point and negatives has been mentioned in the HPI, complete review of systems was performed and all other systems are negative Past Medical History Past Medical History: Hypertension, Thyroid Disorder Past Surgical History: Cholecystectomy Smoking Status: Never smoker Medications and Allergies Home Medications Medication Instructions Recorded Confirmed Type Levothyroxine Sodium [Synthroid] 100 mcg PO DAILY 11/12/24 11/12/24 History Sertraline [Zoloft] 50 mg PO DAILY 11/12/24 11/12/24 History hydroCHLOROthiazide [Hydrodiuril] 25 mg PO DAILY 11/12/24 11/12/24 History hydroCHLOROthiazide [Hydrodiuril] 25 mg PO DAILY PRN 11/12/24 11/12/24 History lisinopriL [Zestril] 20 mg PO DAILY 11/12/24 11/12/24 History Allergies Allergy/AdvReac Type Severity Reaction Status Date / Time No Known Allergies Allergy Verified 11/12/24 13:09 Physical Exam Vitals: Vital Signs Temp Pulse Resp BP Pulse Ox 11/12/24 12:17 95 11/12/24 12:14 77 22 172/81 86 L 11/12/24 10:57 97.6 F 92 20 179/79 94 L Intake and Output 11/11/24 11/12/24 11/12/24 22:59 06:59 14:59 Other: Weight 136.078 kg GENERAL DESCRIPTION: Middle-aged female up in bed, no distress. No tachypnea or accessory muscle of respiration use. HEENT: Shows Pallor , no scleral icterus. Oral mucous membrane is dry. No pharyngeal erythema or thrush NECK: Trachea central, no thyromegaly. LUNGS: Unlabored breathing. Coarse breath sounds bilaterally HEART: S1, S2, regular rate and rhythm. No loud murmur ABDOMEN: Soft, no tenderness , guarding or rigidity, no organomegaly EXTREMITIES: No edema of feet. SKIN: No rash, no masses palpable. NEUROLOGICAL: The patient is awake, alert, oriented x3, mood and affect normal. Results CBC & Chem 7: 11/12/24 11:28 11/12/24 11:28 Labs: Abnormal Lab Results - Last 24 Hours (Table) 11/12/24 11/12/24 11/12/24 Range/Units 11:28 11:28 11:28 Hct 47.1 H (34.0-46.0) % MCV 100.4 H (80.0-100.0) fL MCHC 30.7 L (31.0-37.0) g/dL D-Dimer 0.65 H (<0.60) mg/L FEU Sodium 133 L (137-145) mmol/L Carbon Dioxide 31 H (22-30) mmol/L Glucose 137 H (74-99) mg/dL Alkaline Phosphatase 26 L (38-126) U/L Assessment and Plan (1) Pneumonia Current Visit: Yes Status: Acute Code(s): J18.9 - PNEUMONIA, UNSPECIFIED ORGANISM SNOMED Code(s): 134580658 Plan: 1patient presented to hospital with increasing shortness of breath and cough in this patient symptom has been going off and on for the last 5 to 6 weeks patient noticed to be hypoxic did have diffuse intense infiltrate on the chest x-ray as well as a CT concerning for possible atypical pneumonia versus related to cardiac etiology and the patient not running any fever white count has been normal 2-we will obtain urine for Legionella antigen check mycoplasma IgM and obtain sputum for Gram stain culture 3-patient will be treated with Rocephin and Zithromax while waiting for the workup to be completed We will follow on clinical condition and cultures to further adjust medication if needed Thank you for this consultation we will follow the patient along with you Dictation was produced using [employer] dictation software. please excuse any grammatical, word or spelling errors. Time with Patient: Greater than 30
[2024-11-13] MEDS: lisinopriL 20 MG TAB PO STA (10:06)
[2024-11-13] MEDS: AZITHROMYCIN 500 MG in SODIUM CHLORIDE 0.9% 250 ML IVPB SCH (10:06)
--- NOTE | 2024-11-13 15:53 | P.PN ---
Subjective Progress Note Date: 11/13/24 this is a 59-year-old female patient was hospitalized for increased shortness of breath and cough and congestion. This has been going on for the past 2 weeks. Both her and her were feeling sick and they were suffering from respiratory illness. No fever. No chills. Minimal sputum production. No hemoptysis or pleurisy. She is morbidly obese. She has a body mass index of 53.1. Nevertheless, she denies having any chronic lung disease or disorder. She is a non-smoker. No history of asthma. No history of emphysema. Viral screen is negative. White cell count is not elevated. Electrolytes are all within normal limits. Procalcitonin level is pending for now. CT of the chest was done in the emergency department and it showed no evidence of any pulmonary embolism. Some limited patchy airspace disease in the lungs bilaterally more so in the subpleural location. Few scattered calcified granulomas. Minimal mediastinal lymphadenopathy involving the right hilum. There is cardiomegaly. There is hepatic steatosis. The patient is currently on 3 L of oxygen by nasal cannula with a pulse ox of 95%. No major edema lower extremities. proBNP level is not elevated. Cardiac enzymes are nonelevated. No recurrent respiratory tract infections or illnesses. On today's evaluation of 11/13/2024, the patient is feeling better, less short of breath, oxygenation is stable and the patient remains on 3 Suboxone by nasal cannula with pulse ox of 95%. No significant chest pain. No sputum production. Remains on Rocephin and Zithromax. She remains on IV Solu-Medrol. She remains on DuoNeb nebulized treatment on the clock. The procalcitonin level was at 0.05. The viral screen was negative. Legionella urine antigen was also negative. No other significant complaints otherwise for now. Does not look toxic at all. Objective - Vital Signs Vital signs: Vital Signs Temp 97.7 F 11/13/24 07:31 Pulse 84 11/13/24 12:47 Resp 16 11/13/24 07:31 BP 176/83 11/13/24 07:31 Pulse Ox 96 11/13/24 07:31 FiO2 Intake & Output 11/12/24 11/13/24 11/13/24 18:59 06:59 18:59 Intake Total 222 Output Total 400 Balance -178 Weight 136.078 kg 136.078 kg Intake: Oral 222 Output: Urine 400 Other: Voiding Method Toilet Toilet # Voids 1 # Bowel Movements 0 - Exam The patient appeared well nourished and normally developed. Vital signs as documented. The patient is currently on 3 liters of oxygen by nasal cannula. Morbidly obese with a BMI of 53 Head exam is unremarkable. No scleral icterus or corneal arcus noted. Neck is without jugular venous distension, thyromegaly, or carotid bruits. Carotid upstrokes are brisk bilaterally. Mallampati class IV with significant crowding of the posterior pharynx Lungs are clear to auscultation and percussion. Cardiac exam reveals the PMI to be normally sized and situated. Rhythm is regular. First and second heart sounds normal. No murmurs, rubs or gallops. Abdominal exam reveals normal bowel sounds, no masses, no organomegaly and no aortic enlargement. Extremities are nonedematous and both femoral and pedal pulses are normal. Examination of the skin revealed no evidence of significant rashes, suspicious appearing nevi or other concerning lesions. Neurologically, the patient is awake and alert and the patient does not have any focal neurological deficit. Cranial nerves are essentially intact. - Labs CBC & Chem 7: 11/12/24 11:28 11/12/24 11:28 Labs: Abnormal Lab Results - Last 24 Hours (Table) 11/12/24 Range/Units 20:18 POC Glucose (mg/dL) 267 H (70-110) mg/dL Assessment and Plan Plan: Subacute shortness of breath with evidence of nonspecific patchy subpleural pulmonary filtrates and limited mediastinal lymphadenopathy. Consider atypical pneumonia or resolving respiratory tract infection/pneumonia. Could be potentially atypical. Acute hypoxic respiratory failure currently on 3 L by nasal cannula. Pulmonary granulomas Obesity with a BMI of 53.1. Hypertension Hyperlipidemia Plan Clinically stable and improving Check procalcitonin level, nonelevated Continue DuoNeb Continue Rocephin and Zithromax Continue IV Solu-Medrol Sputum culture if possible Wean FiO2 as tolerated Will follow, recommend follow-up CAT scan in 3 to 6 months post discharge to follow-up on those pulmonary infiltrates and mediastinal lymph nodes.
[2024-11-13] MEDS ORDERED: DEXTROSE 50% SYRINGE 50 ML IVP PRN ×2 (17:35)
--- NOTE | 2024-11-13 17:37 | P.PN ---
Subjective Progress Note Date: 11/13/24 Hospital Course: Patient is a very pleasant 59-year-old female with a past medical history of hypertension, hypothyroidism, and depression with anxiety. She presented to the emergency department secondary to a chief complaint of shortness of breath. Patient reports that she has been experiencing increasing shortness of breath over the last week along with productive cough with green sputum production. at bedside reports this has been increasing over the last 6 weeks. Patient reports her cough is worse at night and in the mornings and her cough and shortness of breath is worse with exertion. She denies history of nicotine use, previous diagnosis of COPD, sarcoidosis or any other respiratory complaints. She reports she does get bronchitis frequently. She reports she held off on seeking treatment because she had an appointment with her PCP this morning. She reports at her PCPs appointment she was found to have low oxygen saturations down into the 80s and was given a breathing treatment which resulted in no improvement so they sent her to the emergency department for evaluation. Patient denies fevers, chills, diaphoresis or night sweats, unintentional weight loss, dizziness, lightheadedness, headache, chest pain or palpitations, nausea, vomiting, abdominal pain, or experiencing any numbness/tingling/weakness /swelling in her extremities. Upon arrival to our facility, patient underwent evaluation in the emergency department. Vital signs upon arrival show blood pressure 179/79, heart rate 92, respiratory rate 20, temp 97.6 F, and SpO2 of 94% on room air. Shortly after arrival patient was noted to become hypoxic with SpO2 decreasing to 86% at rest on room air. Patient was placed on supplemental oxygen with 3 L O2 via nasal cannula with current SpO2 of 93%. EKG was completed showing normal sinus rhythm and 88 bpm with no significant T wave or ST abnormalities upon personal review and interpretation. Chest x-ray completed showing cardiomegaly and mild pulmonary vascular congestion recommending correlation with BMP to rule out congestive heart failure. Labs were completed and reviewed. CBC showing elevated hematocrit of 47.1 and MCV of 100.4. Coagulation profile showing elevated D-dimer of 0.65. BMP showing sodium 133, bicarb of 31, and glucose of 137. Lactic acid was normal at 1.1. Liver profile unremarkable with exception of low alkaline phosphatase of 26. Troponin was negative at less than 0.012 and proBNP was only 102. Influenza A, influenza B, RSV, and COVID PCR were negative. CT chest completed and was negative for pulmonary emboli showing patchy pulmonary opacities suggestive of atypical pulmonary infection with multiple prominent mediastinal and bilateral hilar lym ph nodes with enlarged hilar lymph node measuring up to 1.3 cm and a few punctate calcified right hilar lymph nodes reported along with multiple calcified granulomas within the spleen, cardiomegaly, and hepatic steatosis. Patient started on antibiotics with azithromycin and Rocephin and given single dose of IV steroids. She was admitted under services with consultation to pulmonology. Physical exam: Patient seen and fully evaluated at bedside this morning. She remains on 3 L O2. She reports feeling better since arrival to our facility and clinically appears to be improving. Patient reports continued dry cough but denies having any sputum production over the past 24 hours. She denies having any chest pain or any other complaints. Vital signs reviewed and stable. General: Nontoxic, no distress and appears stated age. Obese. Derm: Skin warm and dry, normal coloration for ethnicity. Head: Atraumatic, normocephalic and symmetric. Eyes: EOM's intact, no lid lag, and anicteric sclera Mouth: no lip lesions, mucus membranes moist Cardiovascular: regular rate and rhythm with normal S1S2, no murmur, positive posterior tibial pulses bilaterally, and cap refill < 2 seconds. Lungs: Respirations even, regular, and unlabored on 3 L O2. Lungs diminished. No wheezes, rhonchi, rales, or crackles noted. Abdominal: soft, nontender to palpation, no guarding, no appreciable organomegaly Ext: ROM intact. No gross muscle atrophy, no edema, no contractures Neuro: Speech clear, face symmetrical and CN II-XII grossly intact with no noted focal neuro deficits Psych: Alert and oriented to person, place, time, and situation. Appropriate and pleasant affect. Assessment and Plan of Care: Acute respiratory failure with hypoxia and hypercapnia Atypical pneumonia Elevated D-dimer, CTA negative for PE -Pulmonology consulted, reviewed documentation in chart. -Oxygenation to be administered and titrated as needed to maintain SPO2 equal to or greater than 92% -Telemetry monitoring. -Monitor pulse-oximetry -Duonebs scheduled 4 times daily and as needed for SOB and/or wheezing -Incentive Spirometry -Steroids: Solu-Medrol 60 mg IV every 8 hours. -Antibiotics: Zithromax 500 mg daily and Rocephin 2 g daily. -Urine Legionella negative. Follow-up on sputum culture and mycoplasma results -Follow-up on blood cultures. Multiple prominent mediastinal and bilateral hilar lymph nodes Punctate calcified right hilar lymph nodes Macrocytosis Calcified granulomas within the spleen Low alkaline phosphatase -CT revealing multiple prominent mediastinal and bilateral hilar lymph nodes w ith enlarged hilar lymph node measuring up to 1.3 cm and a few punctate calcified right hilar lymph nodes reported along with multiple calcified granulomas within the spleen. -Patient will need outpatient workup with hematology after discharge along with outpatient repeat CT in 3 to 6 months. Hypertension Continue lisinopril 20 mg daily and hydrochlorothiazide 25 mg daily. Hypothyroidism Continue levothyroxine 100 mcg daily. Anxiety with depression Continue sertraline 50 mg daily. Data and imaging reviewed: Vital signs reviewed. Blood pressure 176/83, heart rate 84, respiratory rate 16, temp 97.7 F, and SpO2 of 96% on 3 L. Labs reviewed. Glucose elevated at 267. Orders placed for glycemic protocol and NovoLog sliding scale along with hemoglobin A1c. Urine Legionella negative. CODE STATUS: Full code DVT prophylaxis: Lovenox Anticipated discharge date: Pending clinical course Anticipated discharge place: Home Patient was seen independently by Nurse Practitioner. This document was prepared using [employer] dictation software. Please allow for errors in manager supply while rare they do occur. Benigno Vann NP rendered care for this patient independently, reviewed the findings and plan as documented in the note above and agree with plan. I did not physically speak with or examine the alberto Objective - Vital Signs Vital signs: Vital Signs Temp 97.7 F 11/13/24 07:31 Pulse 80 11/13/24 09:33 Resp 16 11/13/24 07:31 BP 176/83 11/13/24 07:31 Pulse Ox 96 11/13/24 07:31 FiO2 Intake & Output 11/12/24 11/13/24 11/13/24 18:59 06:59 18:59 Intake Total 222 Output Total 400 Balance -178 Weight 136.078 kg 136.078 kg Intake: Oral 222 Output: Urine 400 Other: Voiding Method Toilet # Voids 1 # Bowel Movements 0 - Labs CBC & Chem 7: 11/12/24 11:28 11/12/24 11:28 Labs: Abnormal Lab Results - Last 24 Hours (Table) 11/12/24 11/12/24 11/12/24 Range/Units 11:28 11:28 11:28 Hct 47.1 H (34.0-46.0) % MCV 100.4 H (80.0-100.0) fL MCHC 30.7 L (31.0-37.0) g/dL D-Dimer 0.65 H (<0.60) mg/L FEU Sodium 133 L (137-145) mmol/L Carbon Dioxide 31 H (22-30) mmol/L Glucose 137 H (74-99) mg/dL POC Glucose (mg/dL) (70-110) mg/dL Alkaline Phosphatase 26 L (38-126) U/L 11/12/24 Range/Units 20:18 Hct (34.0-46.0) % MCV (80.0-100.0) fL MCHC (31.0-37.0) g/dL D-Dimer (<0.60) mg/L FEU Sodium (137-145) mmol/L Carbon Dioxide (22-30) mmol/L Glucose (74-99) mg/dL POC Glucose (mg/dL) 267 H (70-110) mg/dL Alkaline Phosphatase (38-126) U/L
[2024-11-13] MEDS: hydroCHLOROthiazide 25 MG TAB PO PRN (20:10)
[2024-11-13 20:16] LABS: Glucose,Whole Blood 388 mg/dL (70-110)
[2024-11-13] MEDS: INSULIN ASPART (NovoLOG) 100 UNIT/ML VIAL SQ SCH (20:20)
[2024-11-14 00:50] VITALS: RESP 16
[2024-11-14 05:34] LABS: HCT 48.7 % (34.0-46.0); HGB 15.5 gm/dL (11.4-16.0); Hypochromasia Moderate; MCHC 31.7 g/dL (31.0-37.0); Macrocytosis Slight; Platelet Count 275 k/uL (150-450); RBC 4.68 m/uL (3.80-5.40); RDW 13.6 % (11.5-15.5); WBC 17.5 k/uL (3.8-10.6)
[2024-11-14] MEDS: lisinopriL 20 MG TAB PO SCH (06:38)
[2024-11-14 07:39] LABS: Glucose,Whole Blood 194 mg/dL (70-110)
[2024-11-14 10:25] LABS: ALT 30 U/L (4-34); African American GFR (CKD) >90 (>60 ml/min/1.73 sqM); Albumin 4.2 g/dL (3.5-5.0); Albumin/Globulin Ratio 1.6; Anion Gap 5 mmol/L; Blood Urea Nitrogen 20 mg/dL (7-17); Calcium 9.8 mg/dL (8.4-10.2); Carbon Dioxide 34 mmol/L (22-30); Chloride 96 mmol/L (98-107); Globulin 2.7 g/dL; Glucose 209 mg/dL (74-99); Non-African American GFR(CKD) >90 (>60 ml/min/1.73 sqM); Potassium 4.9 mmol/L (3.5-5.1); Sodium 135 mmol/L (137-145); Total Bilirubin 0.9 mg/dL (0.2-1.3); Total Protein 6.9 g/dL (6.3-8.2)
[2024-11-14 10:26] LABS: AST 33 U/L (14-36); Alkaline Phosphatase 31 U/L (38-126); Magnesium 2.1 mg/dL (1.6-2.3)
[2024-11-14 12:05] LABS: Glucose,Whole Blood 289 mg/dL (70-110)
[2024-11-14 12:29] VITALS: BP 165/83; TEMP 97.9
--- NOTE | 2024-11-14 14:23 | P.DS ---
Providers Date of admission: 11/12/24 13:18 Expected date of discharge: 11/14/24 Attending physician: Don Modi Consults: 11/12/24 16:36 Consult Physician Routine Consulting Provider: Lisandro Bustillos Consult Reason/Comments: acute respiratory failure with hypoxia s/t atypical pneumonia Do you want consulting provider notified?: Yes 11/12/24 16:51 Consult Physician Routine Consulting Provider: Jane Villalta Consult Reason/Comments: atypical pneumonia Do you want consulting provider notified?: Yes Primary care physician: [facility] Course: Discharge Diagnosis: Acute respiratory failure with hypoxia and hypercapnia. Patient successfully weaned off of oxygen, ambulatory pulse ox completed patient 95% on room air at rest and 93% with ambulation. Discussed with engineering writer, patient cleared from pulmonary perspective for discharge recommending outpatient follow-up in their office in 1 week. Patient discharged home with Augmentin 875/125 mg tablets for an additional 7 days to total a 10-day course of antibiotic therapy for treatment of her atypical pneumonia. Patient to follow-up outpatient with PCP in 1 to 2 days and with pulmonary in 1 week. Also recommend outpatient evaluation by car unloader helper as patient will require outpatient repeat CT in 3 to 6 months for follow-up/reevaluation of prominent mediastinal and bilateral hilar lymph nodes, calcified right hilar lymph nodes, and calcified granulomas reported within the spleen. Atypical pneumonia Elevated D-dimer, CTA negative for PE Multiple prominent mediastinal and bilateral hilar lymph nodes. Punctate calcified right hilar lymph nodes. Macrocytosis. Calcified granulomas within the spleen. Low alkaline phosphatase Hypertension. Continue lisinopril 20 mg daily and hydrochlorothiazide 25 mg daily. Hypothyroidism. Continue levothyroxine 100 mcg daily. Anxiety with depression. Continue sertraline 50 mg daily. Hospital Course: Patient is a very pleasant 59-year-old female with a past medical history of hypertension, hypothyroidism, and depression with anxiety. She presented to the emergency department secondary to a chief complaint of shortness of breath. Upon arrival to our facility, patient underwent evaluation in the emergency department. Vital signs upon arrival show blood pressure 179/79, heart rate 92, respiratory rate 20, temp 97.6 F, and SpO2 of 94% on room air. Shortly after arrival patient was noted to become hypoxic with SpO2 decreasing to 86% at rest on room air. Patient was placed on supplemental oxygen with 3 L O2 via nasal cannula with current SpO2 of 93%. EKG was completed showing normal sinus rhythm and 88 bpm with no significant T wave or ST abnormalities upon personal review and interpretation. Chest x-ray completed showing cardiomegaly and mild pulmonary vascular congestion recommending correlation with BMP to rule out congestive heart failure. Labs were completed and reviewed. CBC showing elevated hematocrit of 47.1 and MCV of 100.4. Coagulation profile showing elevated D-dimer of 0.65. BMP showing sodium 133, bicarb of 31, and glucose of 137. Lactic acid was normal at 1.1. Liver profile unremarkable with exception of low alkaline phosphatase of 26. Troponin was negative at less than 0.012 and proBNP was only 102. Influenza A, influenza B, RSV, and COVID PCR were negative. CT chest completed and was negative for pulmonary emboli showing p atchy pulmonary opacities suggestive of atypical pulmonary infection with multiple prominent mediastinal and bilateral hilar lymph nodes with enlarged hilar lymph node measuring up to 1.3 cm and a few punctate calcified right hilar lymph nodes reported along with multiple calcified granulomas within the spleen, cardiomegaly, and hepatic steatosis. Patient started on antibiotics with azithromycin and Rocephin and given single dose of IV steroids. She was admitted under services with consultation to pulmonology. Patient was started on IV antibiotics, scheduled function to be managing her treatments, IV steroids, and supplemental oxygen. Blood culture showing no growth to date. Patient successfully weaned off of oxygen, ambulatory pulse ox completed patient 95% on room air at rest and 93% with ambulation. Discussed with engineering writer, patient cleared from pulmonary perspective for discharge recommending outpatient follow-up in their office in 1 week. Patient discharged home with Augmentin 875/125 mg tablets for an additional 7 days to total a 10-day course of antibiotic therapy for treatment of her atypical pneumonia. Patient to follow- up outpatient with PCP in 1 to 2 days and with pulmonary in 1 week. Also recommend outpatient evaluation by car unloader helper as patient will require outpatient repeat CT in 3 to 6 months for follow-up/reevaluation of prominent mediastinal and bilateral hilar lymph nodes, calcified right hilar lymph nodes, and calcified granulomas reported within the spleen. Physical exam: Vital signs reviewed and stable. General: Nontoxic, no distress and appears stated age. Obese. Derm: Skin warm and dry, normal coloration for ethnicity. Head: Atraumatic, normocephalic and symmetric. Eyes: EOM's intact, no lid lag, and anicteric sclera Mouth: no lip lesions, mucus membranes moist Cardiovascular: regular rate and rhythm with normal S1S2, no murmur, positive posterior tibial pulses bilaterally, and cap refill < 2 seconds. Lungs: Respirations even, regular, and unlabored on 3 L O2. Lungs diminished. No wheezes, rhonchi, rales, or crackles noted. Abdominal: soft, nontender to palpation, no guarding, no appreciable organomegaly Ext: ROM intact. No gross muscle atrophy, no edema, no contractures Neuro: Speech clear, face symmetrical and CN II-XII grossly intact with no noted focal neuro deficits Psych: Alert and oriented to person, place, time, and situation. Appropriate and pleasant affect. A total of 36 minutes of time were spent preparing this complex discharge summary. Pt was discharged on 11/14/2024 at 2:22 PM. Patient was seen independently by Nurse Practitioner. This document was prepared using [employer] dictation software. Please allow for errors in hospital clinic assistant while rare they do occur. Benigno Vann NP rendered care for this patient independently, reviewed the findings and plan as documented in the note above. I did not physically speak with or examine the patient on this date. Patient Condition at Discharge: Stable Plan - Discharge Summary New Discharge Prescriptions: New predniSONE See Taper PO DIRECTED 12 Days #30 tab Albuterol Inhaler [Ventolin Hfa Inhaler] 2 puff INHALATION Q6H PRN 30 Days #1 inh PRN Reason: Shortness Of Breath Or Wheezing Amoxic-Pot Clav 875-125Mg [Augmentin 875-125] 1 tab PO Q12HR 7 Days #14 tab Continue lisinopriL [Zestril] 20 mg PO DAILY hydroCHLOROthiazide [Hydrodiuril] 25 mg PO DAILY PRN PRN Reason: Edema hydroCHLOROthiazide [Hydrodiuril] 25 mg PO DAILY Sertraline [Zoloft] 50 mg PO DAILY Levothyroxine Sodium [Synthroid] 100 mcg PO DAILY Discharge Medication List Levothyroxine Sodium [Synthroid] 100 mcg PO DAILY 11/12/24 [History] Sertraline [Zoloft] 50 mg PO DAILY 11/12/24 [History] hydroCHLOROthiazide [Hydrodiuril] 25 mg PO DAILY 11/12/24 [History] hydroCHLOROthiazide [Hydrodiuril] 25 mg PO DAILY PRN 11/12/24 [History] lisinopriL [Zestril] 20 mg PO DAILY 11/12/24 [History] Albuterol Inhaler [Ventolin Hfa Inhaler] 2 puff INHALATION Q6H PRN 30 Days #1 inh 11/14/24 [Rx] Amoxic-Pot Clav 875-125Mg [Augmentin 875-125] 1 tab PO Q12HR 7 Days #14 tab 11/14/24 [Rx] predniSONE See Taper PO DIRECTED 12 Days #30 tab 11/14/24 [Rx] Follow up Appointment(s)/Referral(s): Braulio Snowden MD [Primary Care Provider] - 1-2 days Joey Peralta MD [STAFF PHYSICIAN] - 2 Weeks Lisandro Bustillos MD [STAFF PHYSICIAN] - 1 Week Activity/Diet/Wound Care/Special Instructions: Activity: As tolerated. Take breaks as needed. Diet: Heart healthy and carb consistent diet. Avoid salts, or foods with hidden salts such as canned or boxed foods and frozen dinners. Extra salt makes your heart work harder and traps the fluid in your body for longer. Special Instructions: Take all of your medications as directed and remember to keep all of your doctor's appointments and follow-up as needed. Wishing you and your family a truly blessed and wonderful holiday season and a happy healthy new year!! Thank you for allowing us to participate in your care, it was truly a pleasure having you for our patient!!!
--- NOTE | 2024-11-14 14:43 | P.PN ---
Subjective Progress Note Date: 11/14/24 this is a 59-year-old female patient was hospitalized for increased shortness of breath and cough and congestion. This has been going on for the past 2 weeks. Both her and her were feeling sick and they were suffering from respiratory illness. No fever. No chills. Minimal sputum production. No hemoptysis or pleurisy. She is morbidly obese. She has a body mass index of 53.1. Nevertheless, she denies having any chronic lung disease or disorder. She is a non-smoker. No history of asthma. No history of emphysema. Viral screen is negative. White cell count is not elevated. Electrolytes are all within normal limits. Procalcitonin level is pending for now. CT of the chest was done in the emergency department and it showed no evidence of any pulmonary embolism. Some limited patchy airspace disease in the lungs bilaterally more so in the subpleural location. Few scattered calcified granulomas. Minimal mediastinal lymphadenopathy involving the right hilum. There is cardiomegaly. There is hepatic steatosis. The patient is currently on 3 L of oxygen by nasal cannula with a pulse ox of 95%. No major edema lower extremities. proBNP level is not elevated. Cardiac enzymes are nonelevated. No recurrent respiratory tract infections or illnesses. On today's evaluation of 11/13/2024, the patient is feeling better, less short of breath, oxygenation is stable and the patient remains on 3 Suboxone by nasal cannula with pulse ox of 95%. No significant chest pain. No sputum production. Remains on Rocephin and Zithromax. She remains on IV Solu-Medrol. She remains on DuoNeb nebulized treatment on the clock. The procalcitonin level was at 0.05. The viral screen was negative. Legionella urine antigen was also negative. No other significant complaints otherwise for now. Does not look toxic at all. On 11/14/2024, the patient's oxygenation is improved and the patient's pulse ox is ranging around 93 to 95% on room air oxygen. She has no specific complaints. Resting comfortably in bed. The plan is to discharge patient home on a course of Augmentin and prednisone burst taper and albuterol rescue inhaler. Objective - Vital Signs Vital signs: Vital Signs Temp 98.3 F 11/14/24 07:35 Pulse 84 11/14/24 08:24 Resp 16 11/14/24 07:35 BP 171/82 11/14/24 07:35 Pulse Ox 97 11/14/24 07:35 FiO2 Intake & Output 11/13/24 11/14/24 11/14/24 18:59 06:59 18:59 Intake Total 358 Balance 358 Intake: Oral 358 Other: Voiding Method Toilet Toilet # Voids 3 1 - Exam The patient appeared well nourished and normally developed. Vital signs as documented. The patient is calm and comfortable. Morbidly obese with a BMI of 53 Head exam is unremarkable. No scleral icterus or corneal arcus noted. Neck is without jugular venous distension, thyromegaly, or carotid bruits. Carotid upstrokes are brisk bilaterally. Mallampati class IV with significant crowding of the posterior pharynx Lungs are clear to auscultation and percussion. Cardiac exam reveals the PMI to be normally sized and situated. Rhythm is regular. First and second heart sounds normal. No murmurs, rubs or gallops. Abdominal exam reveals normal bowel sounds, no masses, no organomegaly and no aortic enlargement. Extremities are nonedematous and both femoral and pedal pulses are normal. Examination of the skin revealed no evidence of significant rashes, suspicious appearing nevi or other concerning lesions. Neurologically, the patient is awake and alert and the patient does not have any focal neurological deficit. Cranial nerves are essentially intact. - Labs CBC & Chem 7: 11/14/24 04:35 11/14/24 08:35 Labs: Abnormal Lab Results - Last 24 Hours (Table) 11/13/24 11/14/24 11/14/24 Range/Units 20:13 04:35 07:38 WBC 17.5 H (3.8-10.6) k/uL Hct 48.7 H (34.0-46.0) % MCV 104.0 H (80.0-100.0) fL Sodium (137-145) mmol/L Chloride (98-107) mmol/L Carbon Dioxide (22-30) mmol/L BUN (7-17) mg/dL Glucose (74-99) mg/dL POC Glucose (mg/dL) 388 H 194 H (70-110) mg/dL Alkaline Phosphatase (38-126) U/L 11/14/24 Range/Units 08:35 WBC (3.8-10.6) k/uL Hct (34.0-46.0) % MCV (80.0-100.0) fL Sodium 135 L (137-145) mmol/L Chloride 96 L (98-107) mmol/L Carbon Dioxide 34 H (22-30) mmol/L BUN 20 H (7-17) mg/dL Glucose 209 H (74-99) mg/dL POC Glucose (mg/dL) (70-110) mg/dL Alkaline Phosphatase 31 L (38-126) U/L Microbiology - Last 24 Hours (Table) 11/12/24 14:11 Blood Culture - Preliminary Blood Assessment and Plan Plan: Subacute shortness of breath with evidence of nonspecific patchy subpleural pulmonary filtrates and limited mediastinal lymphadenopathy. Consider atypical pneumonia or resolving respiratory tract infection/pneumonia. Could be potentially atypical. Clinically improved Acute hypoxic respiratory failure improved and the patient is currently on room air oxygen Pulmonary granulomas Obesity with a BMI of 53.1. Hypertension Hyperlipidemia Plan Clinically stable and improving Check procalcitonin level, nonelevated Continue DuoNeb Oxygenation improved and the patient is currently on room air oxygen. Discharged home on a prednisone burst taper and a course of Augmentin to be followed up on outpatient basis. Will follow, recommend follow-up CAT scan in 3 to 6 months post discharge to follow-up on those pulmonary infiltrates and mediastinal lymph nodes.
--- NOTE | 2024-11-14 14:49 | P.PN ---
Subjective Progress Note Date: 11/14/24 Principal diagnosis: Reason for follow-up is pneumonia Patient is a 59-year-old female with a past medical history significant for hypertension hypothyroidism never smoker patient presenting to the hospital for evaluation of increasing shortness of breath, the patient did have a abnormal CT suspicious for possible atypical infection. On today's evaluation that is 11/14/2024, patient did not have any fever and denies any chills, patient is breathing comfortably on room air, patient with no chest pain cough decreased intensity mostly dry in nature no nausea vomiting abdominal pain or diarrhea. Patient white count 17.5 creatinine 0.56 procalcitonin 0.05 urine for Legionella antigen negative sputum culture currently pending Objective - Vital Signs Vital signs: Vital Signs Temp 97.9 F 11/14/24 12:28 Pulse 87 11/14/24 12:28 Resp 16 11/14/24 12:28 BP 165/83 11/14/24 12:28 Pulse Ox 97 11/14/24 12:28 FiO2 Intake & Output 11/13/24 11/14/24 11/14/24 18:59 06:59 18:59 Intake Total 598 Balance 598 Intake: Oral 598 Other: Voiding Method Toilet Toilet Toilet # Voids 3 1 - Exam GENERAL DESCRIPTION: Middle-age female up in bed in no distress RESPIRATORY SYSTEM: Unlabored breathing , decreased breath sounds at bases HEART: S1 S2 regular rate and rhythm , ABDOMEN: Soft , no tenderness - Labs CBC & Chem 7: 11/14/24 04:35 11/14/24 08:35 Labs: Abnormal Lab Results - Last 24 Hours (Table) 11/13/24 11/14/24 11/14/24 Range/Units 20:13 04:35 04:35 WBC 17.5 H (3.8-10.6) k/uL Hct 48.7 H (34.0-46.0) % MCV 104.0 H (80.0-100.0) fL Sodium (137-145) mmol/L Chloride (98-107) mmol/L Carbon Dioxide (22-30) mmol/L BUN (7-17) mg/dL Glucose (74-99) mg/dL POC Glucose (mg/dL) 388 H (70-110) mg/dL Hemoglobin A1c 7.0 H (<=6.0) % Alkaline Phosphatase (38-126) U/L 11/14/24 11/14/24 11/14/24 Range/Units 07:38 08:35 12:04 WBC (3.8-10.6) k/uL Hct (34.0-46.0) % MCV (80.0-100.0) fL Sodium 135 L (137-145) mmol/L Chloride 96 L (98-107) mmol/L Carbon Dioxide 34 H (22-30) mmol/L BUN 20 H (7-17) mg/dL Glucose 209 H (74-99) mg/dL POC Glucose (mg/dL) 194 H 289 H (70-110) mg/dL Hemoglobin A1c (<=6.0) % Alkaline Phosphatase 31 L (38-126) U/L Microbiology - Last 24 Hours (Table) 11/12/24 16:47 Gram Stain - Preliminary Sputum Sputum Culture - Preliminary 11/12/24 14:11 Blood Culture - Preliminary Blood Assessment and Plan (1) Pneumonia Current Visit: Yes Status: Acute Code(s): J18.9 - PNEUMONIA, UNSPECIFIED ORGANISM SNOMED Code(s): 896613121 Plan: 1patient presented to hospital with increasing shortness of breath and cough in this patient symptom has been going off and on for the last 5 to 6 weeks patient noticed to be hypoxic did have diffuse intense infiltrate on the chest x-ray as well as a CT concerning for possible atypical pneumonia versus related to cardiac etiology and the patient not running any fever white count has been normal 2- urine for Legionella antigen negative, mycoplasma IgM and sputum culture currently pending 3-patient did have clinical improvement we will continue with Rocephin and Zithromax while waiting for the workup to be completed Dictation was produced using [employer] dictation software. please excuse any grammatical, word or spelling errors. Time with Patient: Less than 30
[2024-11-14 16:09] VITALS: PULSE 85
[2024-11-16 04:58] LABS: Mycoplasma IgG Antibody (EIA) 1.5 INDEX (<=0.90); Mycoplasma IgM Antibody 0.25 INDEX (<=0.90)
== END 2024-11-14 16:37 | disposition home or self-care (01) | DRG 193 ==
LOC: EC 10:55 → 4SSUR 13:18 → 5NMEDONC 17:56
PROVIDERS: ADMIT Student in an Organized Health Care Education/Training Program; ATTEND Student in an Organized Health Care Education/Training Program
DX: J18.9 Pneumonia, unspecified organism (principal); J96.01 Acute respiratory failure with hypoxia; J96.02 Acute respiratory failure with hypercapnia; Z68.43 Body mass index [BMI] 50.0-59.9, adult; D73.89 Other diseases of spleen; E66.01 Morbid (severe) obesity due to excess calories; I11.9 Hypertensive heart disease without heart failure; E03.9 Hypothyroidism, unspecified; F32.A Depression, unspecified; K76.0 Fatty (change of) liver, not elsewhere classified; D75.89 Other specified diseases of blood and blood-forming organs; F41.9 Anxiety disorder, unspecified; R79.89 Other specified abnormal findings of blood chemistry; R59.0 Localized enlarged lymph nodes; Z87.891 Personal history of nicotine dependence; Z79.890 Hormone replacement therapy; Z79.899 Other long term (current) drug therapy
CPT/HCPCS: 36415; 71046; 71275; 80053; 83036; 83605; 83735; 83880; 84145; 84484; 85025; 85027; 85379; 85610; 85730; 86738; 87040; 87070; 87205; 87449; 87636; 93005; 94640; 94760; 96361; 96374; 96375; 99285

== ENCOUNTER → 2024-11-26 | Outpatient (CLI) | payer MEDICAID ==
--- NOTE | 2024-11-26 15:50 | XR ---
EXAMINATION TYPE: XR chest 2V DATE OF EXAM: 11/26/2024 1:57 PM COMPARISON: 11/12/2024 CLINICAL INDICATION: Female, 59 years old with history of J18.9 PNEUMONIA, UNSPECIFIED ORGANISM, , TECHNIQUE: Frontal and lateral views FINDINGS: Heart mildly enlarged. Interstitial/vascular prominence without consolidation or pleural effusion. Ca lcified granuloma at the right base. IMPRESSION: Correlate for CHF with mild pulmonary vascular congestion. Interstitial prominence could alternativel y reflect bronchitis or atypical pneumonia. [facility], , 11/26/2024 3:48 PM
== END | disposition home or self-care (01) ==
LOC: RADXRMAIN 13:42
PROVIDERS: ATTEND Family Medicine
DX: J18.9 Pneumonia, unspecified organism (principal); R09.89 Other specified symptoms and signs involving the circulatory and respiratory systems
CPT/HCPCS: 71046

== ENCOUNTER 2025-02-23 19:40 | Outpatient (CLI) | payer MEDICAID ==
--- NOTE | 2025-03-10 21:40 | P.PCN ---
Date of Procedure: 02/23/25 Operative Findings: Polysomnography report Date of service is 02/23/2025 History 59-year-old morbidly obese male patient with typical features of DANIKA. The patient has loud snoring, sleep fragmentation chronic hypersomnia and sleepiness. The patient is morbidly obese. The patient has restrictive lung disease along with hypertension. Pertinent physical findings Weight is 314 pounds with a BMI of 55.6 Technical description The patient was studied using a standard complex polysomnography protocol that included recording of the Lead II EKG, Central, occipital and frontal EEG, right and left outer canthus EOG, submental EMG, right and left anterior tibialis EMG, respiratory airflow by thermocouple and or pressure/flow transducer, respiratory efforts by abdominal and thoracic PVDF belts, oxygen saturation by cable oximetry. Position by observation synchronized the PSG. Equipment used: [employer]. Sleep characteristics The total recording duration was 46 minutes. The total sleep time was 269 minutes. The time awake after sleep onset was 86 minutes. Latency to sleep was 50 minutes and the latency to REM sleep was 121.5 minutes. Sleep architecture was characterized by 12.5% stage I, 65.8% stage II, 0% stage III and a total of 21.7% REM sleep. The total arousal index was 67.1 Respiratory analysis The patient had a total of 657 obstructive events of which 362 were obstructive apneas, 1 was mixed apnea and 294 obstructive hypopneas. The resulting AHI was 148.8 consistent with severe obstructive sleep apnea. Oxygenation analysis The baseline pulse ox was 86% while awake. Lowest oxygen saturation was 40% and the patient spent 354 minutes of the sleep time below pulse ox of 89% accounting for 87.3% of the sleep study Periodic limb movements None Arousal events The patient had a total of 301 arousals with an index of 67.1. Respiratory arousal index was 47 Cardiac summary Average heart rate was 72 and the cardiac rhythm was sinus. The minimum heart rate recorded was 64 and the maximum heart rate was 79 Assessment Severe DANIKA with an AHI of 148.8 Severe nocturnal oxygen desaturation with a minimum pulse ox of 40% during sleep Morbid obesity with a BMI 55.6 Chronic hypersomnia Chronic hypoxic respiratory failure Restrictive lung disease secondary to morbid obesity Hypertension Plan Encourage weight loss Immediate CPAP/BiPAP titration for severe symptomatic obstructive sleep apnea.
== END 2025-02-24 05:40 | disposition home or self-care (01) ==
LOC: 3 N SLEEP 19:40
PROVIDERS: ATTEND Internal Medicine Critical Care Medicine
DX: G47.33 Obstructive sleep apnea (adult) (pediatric) (principal); E66.01 Morbid (severe) obesity due to excess calories; I10 Essential (primary) hypertension; J45.909 Unspecified asthma, uncomplicated; J96.11 Chronic respiratory failure with hypoxia; Z68.43 Body mass index [BMI] 50.0-59.9, adult
CPT/HCPCS: 95810

== ENCOUNTER 2025-03-10 19:48 | Outpatient (CLI) | payer MEDICAID ==
--- NOTE | 2025-03-22 20:43 | P.PCN ---
Date of Procedure: 03/10/25 Operative Findings: Date of service is 03/10/2025 History 59-year-old morbidly obese male patient with typical features of DANIKA. The patient has loud snoring, sleep fragmentation chronic hypersomnia and sleepiness. The patient is morbidly obese. The patient has restrictive lung disease along with hypertension. The patient underwent a screening polysomnography and the patient was found to have severe DANIKA 148.8, the patient is presenting for ongoing CPAP titration. Pertinent physical findings Weight is 314 pounds with a BMI of 55.6 Technical description The patient was studied using a standard complex polysomnography protocol that included recording of the Lead II EKG, Central, occipital and frontal EEG, right and left outer canthus EOG, submental EMG, right and left anterior tibialis EMG, respiratory airflow by thermocouple and or pressure/flow transducer, respiratory efforts by abdominal and thoracic PVDF belts, oxygen saturation by cable oximetry. Position by observation synchronized the PSG. Equipment used: [email or web address]. Stepwise CPAP titration was done to eliminate all obstru ctive respiratory events. Sleep architecture The patient's total recording duration was 399.5 minutes. The total sleep time was 322.5 minutes. The wake after sleep onset time was 33.5 minutes. The overall sleep efficiency was 80.7%. The latency to sleep onset was 41.5 minutes. The latest REM sleep was 59 minutes. The sleep architecture was characterized by 1.4% stage I, 47.8% stage II, 0% stage III and 51.0% REM sleep. There was an obvious REM rebound noted. The total arousal index was 2.0. The wake after sleep onset time was 33.5 minutes. CPAP titration summary The patient was started on CPAP therapy and the patient was started at a pressure of 4 cm of of water and the CPAP pressure was gradually increased maintenance of 1 cm to reach a maximum CPAP pressure of 16 cm of water. Oxygen was also added at 2 L. Noted the patient encountered improvement in the obstructive respiratory events with increasing CPAP pressures. There was an obvious improvement at CPAP pressures of 13 cm of water. Nevertheless, the patient continued to have nocturnal oxygen desaturation which essentially improved by the addition of O2 at 2 L. This was successful titration. REM rebound was noted and the patient was studied in REM and non-REM sleep. The patient was resumed various body positions including supine body position. Cardiac summary Average heart rate was 61 minimum heart of 57 and a maximum heart of 66. Rhythm was sinus Arousal events A total of 11 arousals were encountered with an index of 2.0. The respiratory arousal index was 0.2. Periodic limb movements None Assessment Severe DANIKA with an AHI of 148.8, the patient underwent a successful CPAP titration. Severe nocturnal oxygen desaturation with a minimum pulse ox of 40% during sleep, improved with CPAP therapy in combination with O2 therapy. REM rebound secondary to CPAP therapy Morbid obesity with a BMI 55.6 Chronic hypersomnia Chronic hypoxic respiratory failure Restrictive lung disease secondary to morbid obesity Hypertension Plan Initiate CPAP therapy. The patient will be offered a APAP unit and the machine will be set at a pressure of 10 cm of water minimum and 16 cm of water maximum. Oxygen will be also added at 2 L/min nasal cannula. The patient provides a Simplus full facemask, small size. Will encourage weight loss Optimize sleep hygiene measures Maintain regular sleep schedule Seen back in office in 30 to 90 days to assess clinical response and compliance with CPAP therapy. Will follow
== END 2025-03-11 05:30 | disposition home or self-care (01) ==
LOC: 3 N SLEEP 19:48
PROVIDERS: ATTEND Internal Medicine Critical Care Medicine
DX: G47.33 Obstructive sleep apnea (adult) (pediatric) (principal); E66.01 Morbid (severe) obesity due to excess calories; J96.11 Chronic respiratory failure with hypoxia; I10 Essential (primary) hypertension; J98.9 Respiratory disorder, unspecified; Z68.43 Body mass index [BMI] 50.0-59.9, adult; Z99.89 Dependence on other enabling machines and devices
CPT/HCPCS: 95811

== ENCOUNTER → 2025-03-26 | Outpatient (CLI) | payer MEDICAID ==
--- NOTE | 2025-03-26 10:42 | MM ---
Reason for Exam: Screening (asymptomatic). Last mammogram was performed 1 year(s) and 1 month(s) ago. Patient History: Menarche at age 13. First Full-Term at age 26. Postmenopausal. Risk Values: Yasmin 5 year model risk: 1.5%. NCI Lifetime model risk: 8.3%. Prior Study Comparison: 08/22/2021 Bilateral Screening Mammogram, [facility]. 09/04/2022 Bilateral MG screening mammo w CAD, [facility]. 03/18/2024 Bilateral MG screening mammo w CAD, [facility]. Tissue Density: There are scattered areas of fibroglandular density. Findings: Analyzed By CAD. There are a few regional benign appearing tiny round and linear calcifications bilaterally redemonstrated. Benign-appearing Bilateral axillary lymph nodes are again seen. Asymmetric prominent tissue upper-outer aspect left breast redemonstrated. There is no suspicious group of microcalcifications or new suspicious mass in either breast. Overall Assessment: Benign, BI-RAD 2 Management: Screening Mammogram of both breasts in 1 year. . Patient should continue monthly self-breast exams. A clinical breast exam by your physician is recommended on an annual basis. This exam should not preclude additional follow-up of suspicious palpable abnormalities. Note on Yasmin scores and lifetime risk: 1. A Yasmin score greater than 3% is considered moderate risk. If this is the case, consider specialist referral to assess eligibility for a risk reducing agent. 2. If overall lifetime risk for the development of breast cancer is 20% or higher, the patient may qualify for future screening with alternating mammogram and breast MRI. [facility], , 03/26/2025 10:38 AM. Electronically signed and approved by: Gera Levy M.D.
== END | disposition home or self-care (01) ==
LOC: RADMAMWWP 09:51
PROVIDERS: ATTEND Family Medicine
DX: Z12.31 Encounter for screening mammogram for malignant neoplasm of breast (principal); R92.323 Mammographic fibroglandular density, bilateral breasts; Z78.0 Asymptomatic menopausal state
CPT/HCPCS: 77067

== ENCOUNTER → 2025-04-14 | Outpatient (CLI) | payer MEDICAID ==
--- NOTE | 2025-04-15 09:51 | CA ---
Transthoracic Echo Report Name: Fredis Cantu Age: 59 Gender: F : 1965 Exam Date: 04/14/2025 14:59 Exam Location: [facility] Ht (in): 63 Wt (lb): 310 Ordering Physician: Lisandro Bustillos MD Attending/Referring Phys: Hatchery Attendant Agatha Pennington RDCS Procedure CPT: Indications: I51.7 Cardiomegaly Cardiac Hx: Technical Quality: Fair Contrast 1: Total Dose (mL): Contrast 2: Total Dose (mL): MEASUREMENTS (Male / Female) Normal Values 2D ECHO LV Diastolic Diameter PLAX 4.8 cm 4.2 - 5.9 / 3.9 - 5.3 cm LV Systolic Diameter PLAX 2.9 cm IVS Diastolic Thickness 1.1 cm 0.6 - 1.0 / 0.6 - 0.9 cm LVPW Diastolic Thickness 1.4 cm 0.6 - 1.0 / 0.6 - 0.9 cm LV Relative Wall Thickness 0.5 RV Internal Dim ED PLAX 2.6 cm LA Systolic Diameter LX 4.3 cm 3.0 - 4.0 / 2.7 - 3.8 cm LV Diastolic Volume MOD 4C 93.6 cm??? LV Systolic Volume MOD 4C 42.5 cm??? LV Ejection Fraction MOD 4C 54.6 % LV Cardiac Index MOD 4C 1398.7 cm???/min???m??? LV Diastolic Length 4C 7.3 cm LV Systolic Length 4C 5.8 cm LA Volume 93.5 cm??? 18 - 58 / 22 - 52 cm??? LA Volume Index 36.1 cm???/m??? 16 - 28 cm???/m??? M-MODE Aortic Root Diameter MM 3.1 cm LA Systolic Diameter MM 4.3 cm LA Ao Ratio MM 1.4 AV Cusp Separation MM 1.9 cm DOPPLER MV Area PHT 3.1 cm??? Mitral E Point Velocity 67.9 cm/s Mitral A Point Velocity 83.5 cm/s Mitral E to A Ratio 0.8 MV Deceleration Time 243.1 ms TR Peak Velocity 137.5 cm/s TR Peak Gradient 7.6 mmHg FINDINGS Left Ventricle Left ventricular ejection fraction is estimated at 55-60 %. Mildly increased septal wall thickness. Moderately increased posterior wall thickness. Normal left ventricular systolic function with no obvious regional wall motion abnormalities. Left ventricular cavity size normal. Right Ventricle Mild right ventricular dilatation. Right ventricular systolic pressure within normal limits. Right Atrium Mild right atrial dilatation. Left Atrium Moderately increased left atrial diameter. Moderately increased left atrial volume. Mildly increased left atrial area. Mitral Valve Structurally normal mitral valve. Trace mitral regurgitation. No mitral stenosis. Aortic Valve Trileaflet aortic valve. No aortic stenosis. No aortic regurgitation. Tricuspid Valve Structurally normal tricuspid valve. Trace to mild tricuspid regurgitation. No tricuspid stenosis. Pulmonic Valve Structurally normal pulmonic valve. Trace pulmonic regurgitation. No pulmonic stenosis. Pericardium No pericardial or pleural effusion. Echo free space anterior to the right ventricle likely represents a fat pad. Aorta Normal size aortic root and proximal ascending aorta. CONCLUSIONS Diagnosis: Cardiomegaly LVH with preserved systolic function Mild RV enlargement with preserved systolic function Moderate biatrial enlargement Previewed by: Dr. Grabiel Garcia MD (Electronically Signed) Final Date: 15 Apr 2025 09:50
== END | disposition home or self-care (01) ==
LOC: RADECHMAIN 14:48
PROVIDERS: ATTEND Internal Medicine Critical Care Medicine
DX: I51.7 Cardiomegaly (principal)
CPT/HCPCS: 93306